=== PATIENT | female | born 1995 | race Caucasian/White ===

== ENCOUNTER → 2020-05-27 | Outpatient (CLI) | payer MEDICAID ==
--- NOTE | 2020-05-27 12:35 | US ---
EXAMINATION TYPE: Ultrasound OB <= 14 weeks transvaginal DATE OF EXAM: 05/27/2020 11:12 AM COMPARISON: NONE CLINICAL HISTORY: 25-year-old female O26.859 Spotting complicating , unspecified. Spotting a nd cramping x 5 days; LLQ Pain x 1 day EXAM PERFORMED: Transvaginal (TV) and Transabdominal (TA) FINDINGS: EXAM MEASUREMENTS: GESTATIONAL AGE / DATING Physician Established: Not yet established Dates by LMP: 04/05/20 (7 weeks/3 days) EDC: 01/10/21 Dates by First Scan: No previous this is first scan Dates by Current Scan for: (6 weeks/1 days +/- 3 days) EDC: 01/19/21 MATERNAL ANATOMY Uterus: 8.8 x 5.9 x 5.9 cm Right Ovary: 2.3 x 1.5 x 1.4 cm Left Ovary: 3.4 x 2.3 x 2.2 cm Post CDS / Adnexa: No Presence of free fluid: No Presence of corpus luteal cyst: Lt 2.4 x 1.8 x 1.7 cm Presence of subchorionic bleed: 2.2 x 0.5 x 0.7 cm GESTATION / SURVEY CRL: 0.28 (5 weeks/6 days) MSD: 1.95 cm (6 weeks/3 days) Yolk Sac (normal less than 6mm): 0.2 Heart Rate: 103 bpm Rhythm: Normal IUP: Viable IUP Date of LMP: 04/05/20 Beta HcG (if available): Not available at this time IMPRESSION: 1. Single live intrauterine with estimated gestational age of 7 weeks 3 days by LMP. Curren t ultrasound biometry is smaller and discordant at 6 weeks 1 day. Correlate for accuracy of recall of LMP. 2. Measured heart rate of 103 BPM is acceptable at 6 weeks 1 day but would be bradycardic at 7 weeks 3 days. 3. In addition, there is a small left-sided perigestational bleed measuring 2.2 x 0.7 cm. Short inter kevin follow-up recommended given these findings. 4. Also, complete survey recommended at 18-20 weeks.
== END | disposition home or self-care (01) ==
LOC: RADUSWWP 10:21
PROVIDERS: ATTEND Obstetrics & Gynecology
DX: O26.859 Spotting complicating pregnancy, unspecified trimester (principal); Z3A.01 Less than 8 weeks gestation of pregnancy
CPT/HCPCS: 76801; 76817

== ENCOUNTER → 2020-06-16 | Outpatient (CLI) | payer MEDICAID ==
--- NOTE | 2020-06-16 14:57 | US ---
EXAMINATION TYPE: Transabdominal DATE OF EXAM: 06/16/2020 2:40 PM COMPARISON: NONE CLINICAL HISTORY: O76 Abnormal Heart Tones. follow up EXAM PERFORMED: Transabdominal (TA) EXAM MEASUREMENTS: GESTATIONAL AGE / DATING Physician Established: Not yet established Dates by LMP: (10 weeks/2 days) EDC: 01/10/21 Dates by First Scan: (9 weeks/0 days) EDC: 01/19/21 Dates by Current Scan for: (9 weeks/2 days) EDC: 01/17/21 MATERNAL ANATOMY Uterus: 13.9 x 5.2 x 8.5cm Right Ovary: 2.0 x 1.4 x 2.8cm Left Ovary: 3.1 x 2.1 x 2.6cm Post CDS / Adnexa: appears wnl Presence of free fluid: no Presence of corpus luteal cyst: yes, left ovary = 2.1 x 1.7 x 1.8cm GESTATION / SURVEY CRL: 2.5cm (9 weeks/2 days) Yolk Sac (normal less than 6mm): 0.4cm Heart Rate: 167 bpm Rhythm: Normal IUP: Viable IUP Date of LMP: 04/05/20 Beta HcG (if available): Not available at this time IMPRESSION: Viable 9 weeks 2 days with a heart rate 167 bpm.
== END | disposition home or self-care (01) ==
LOC: RADUSWWP 14:14
PROVIDERS: ATTEND Obstetrics & Gynecology
DX: O76 Abnormality in fetal heart rate and rhythm complicating labor and delivery (principal); Z3A.09 9 weeks gestation of pregnancy
CPT/HCPCS: 76801

== ENCOUNTER → 2020-06-18 | Outpatient (CLI) | payer MEDICAID ==
[2020-06-18 12:07] LABS: HCT 42.5 % (34.0-46.0); HGB 13.5 gm/dL (11.4-16.0); MCH 26.4 pg (25.0-35.0); MCHC 31.8 g/dL (31.0-37.0); Mean Platelet Volume 6.4; Platelet Count 257 k/uL (150-450); RBC 5.12 m/uL (3.80-5.40); RDW 13.8 % (11.5-15.5); WBC 10.1 k/uL (3.8-10.6)
[2020-06-18 16:45] LABS: African American GFR (CKD) 144.8 (60.0-200.0); Non-African American GFR(CKD) 124.9 (60.0-200.0)
[2020-06-18 16:53] LABS: T4, Free (Free Thyroxine) 1.1 ng/dL (0.80-1.80)
[2020-06-18 17:20] LABS: T3, Uptake 17 % (23-37)
[2020-06-18 19:23] LABS: HIV 2 AB Non-Reactive (Non-Reactive); HIV AB P24 Non-Reactive (Non-Reactive); HIV P24 AG Non-Reactive (Non-Reactive)
[2020-06-18 20:44] LABS: Hepatitis B Surface Antigen Non-Reactive (Non-Reactive)
[2020-06-19 04:15] LABS: Toxoplasma Antibody (IgG) <3.0 IU/mL (<7.2); Toxoplasma Antibody (IgM) <3.0 AU/mL (<8.0)
== END | disposition home or self-care (01) ==
LOC: LABWHC1 09:28
PROVIDERS: ATTEND Obstetrics & Gynecology
DX: O26.811 Pregnancy related exhaustion and fatigue, first trimester (principal); Z3A.00 Weeks of gestation of pregnancy not specified
CPT/HCPCS: 36415; 82565; 82950; 84439; 84443; 84479; 85027; 86762; 86777; 86778; 86780; 86850; 86900; 86901; 87340; 87390

== ENCOUNTER → 2020-07-10 | Outpatient (CLI) | payer MEDICAID | END | disposition home or self-care (01) | LOC: LABWHC1 14:16 | PROVIDERS: ATTEND Pediatrics Pediatric Infectious Diseases | DX: Z03.818 Encounter for observation for suspected exposure to other biological agents ruled out (principal) ==

== ENCOUNTER 2020-07-11 23:47 | Emergency (ER) | payer MEDICAID ==
[2020-07-11 23:51] VITALS: BP 146/90; TEMP 98.2
--- NOTE | 2020-07-12 00:15 | ED ---
SOB HPI - General Chief Complaint: Shortness of Breath Stated Complaint: SOB Time Seen by Provider: 07/11/20 23:56 Source: patient Mode of arrival: ambulatory Limitations: no limitations - History of Present Illness Initial Comments: This patient is 25-year-old woman with history of asthma who presents with the chief complaint of shortness of breath, coughing, wheezing. Patient states that things been going on for approximately 3-4 days. She states that her sister was having similar symptoms and they were concerned they may have rotavirus. The pa sánchez saw her primary physician and was started on Medrol Dosepak. She is taking 2 pills today. In addition, patient states she is 13 weeks . Patient has not noted fever or chills. No chest pain. No sputum. MD Complaint: shortness of breath, cough -: days(s) Severity scale (1-10): 0 Consistency: constant Improves With: bronchodilators Worsens With: nothing Known History Of: asthma Associated Symptoms: cough Treatments Prior to Arrival: bronchodilator, other (Dexamethasone) - Related Data Home Oxygen Therapy: No Allergies Allergy/AdvReac Type Severity Reaction Status Date / Time hydroxyzine [From Atarax] Allergy Rash/Hives Verified 07/11/20 23:51 Review of Systems ROS Statement: Those systems with pertinent positive or pertinent negative responses have been documented in the HPI. ROS Other: All systems not noted in ROS Statement are negative. Constitutional: Denies: fever, chills ENT: Reports: congestion Respiratory: Reports: cough, dyspnea, wheezes. Denies: hemoptysis Cardiovascular: Denies: chest pain, palpitations, edema, syncope Gastrointestinal: Denies: abdominal pain, nausea, vomiting, diarrhea Genitourinary: Denies: dysuria, hematuria Musculoskeletal: Denies: back pain Skin: Denies: rash Neurological: Denies: headache, weakness, numbness Past Medical History Past Medical History: Asthma History of Any Multi-Drug Resistant Organisms: None Reported Past Surgical History: Section Past Psychological History: Anxiety, Depression Smoking Status: Former smoker Past Alcohol Use History: None Reported Past Drug Use History: None Reported General Exam Limitations: no limitations General appearance: alert, in no apparent distress Head exam: Present: atraumatic, normocephalic Eye exam: Present: normal appearance. Absent: scleral icterus, conjunctival injection ENT exam: Present: normal oropharynx Neck exam: Present: normal inspection Respiratory exam: Present: wheezes. Absent: respiratory distress, rales, rhonchi, stridor, accessory muscle use, decreased breath sounds, prolonged expiratory Cardiovascular Exam: Present: regular rate, tachycardia, normal heart sounds. Absent: systolic murmur, diastolic murmur, rubs, gallop GI/Abdominal exam: Present: soft. Absent: distended, tenderness, guarding, rebound, rigid, mass Extremities exam: Present: normal inspection, normal capillary refill. Absent: pedal edema, calf tenderness Back exam: Present: normal inspection. Absent: CVA tenderness (R), CVA tenderness (L) Neurological exam: Present: alert Skin exam: Present: warm, dry, intact, normal color. Absent: rash Course Vital Signs 07/11/20 07/12/20 07/12/20 23:47 00:44 00:54 Temperature 98.2 F Pulse Rate 116 H 90 112 H Respiratory 20 Rate Blood Pressure 146/90 O2 Sat by Pulse 100 Oximetry Medical Decision Making - Medical Decision Making Patient is 25-year-old woman with history of asthma. She had marked improvement following nebulized treatment, and therefore additional steroids are held. I did discuss risks and benefits of this and goal was to minimize steroid exposure while . She is feeling markedly better and wants home. She does have follow-up with Dr. Domingo scheduled. - EKG Data -: EKG Interpreted by Me EKG shows normal: sinus rhythm, axis (Normal), intervals (Normal), ST-T waves (Normal) Rate: tachycardia (Rate 111 bpm) Disposition Clinical Impression: Asthma exacerbation Disposition: HOME SELF-CARE Condition: Good Instructions (If sedation given, give patient instructions): Asthma (ED) Is patient prescribed a controlled substance at d/c from ED?: No Referrals: Glen Domingo DO [Primary Care Provider] - 1-2 days
[2020-07-12] MEDS ORDERED: predniSONE 50 MG TAB PO STA (00:16)
[2020-07-12] MEDS ORDERED: IPRATROPIUM-ALBUTEROL 3 ML NEB INHALATION STA (00:16)
[2020-07-12 01:34] VITALS: PULSE 101; RESP 18
== END 2020-07-12 01:34 | disposition home or self-care (01) ==
LOC: EC 23:47
DX: O99.511 Diseases of the respiratory system complicating pregnancy, first trimester (principal); J45.901 Unspecified asthma with (acute) exacerbation; Z88.8 Allergy status to other drugs, medicaments and biological substances; Z87.891 Personal history of nicotine dependence; Z3A.13 13 weeks gestation of pregnancy
CPT/HCPCS: 93005; 94640; 99285

== ENCOUNTER → 2020-08-25 | Outpatient (CLI) | payer MEDICAID ==
--- NOTE | 2020-08-25 16:18 | US ---
EXAMINATION TYPE: US OB anatomy transabd DATE OF EXAM: 08/25/2020 COMPARISON: US HISTORY: O36.62X0 Maternal care for excessive growth, TECHNIQUE: Transabdominal (TA) EXAM MEASUREMENTS: GESTATIONAL AGE / DATING Physician Established: ( weeks/19 days) 0 EDC: 01/19/2021 Dates by LMP: ( weeks/20 days) 2 EDC: 01/10/2021 Dates by First Scan: ( weeks/19 days) 0 EDC: Dates by Current Scan for: (19 weeks/3 days) EDC: 01/16/2021 SURVEY IUP: Single PLACENTA: Anterior PREVIA: No previa TORIBIO: 11.3 cm Normal CERVICAL LENGTH (transabdominal: norm > 3.0cm): 3.9 cm BIOMETRY PRESENTATION: Breech BPD: 4.4 cm 19 weeks / 3 days HC: 17.0 cm 19 weeks / 5 days AC: 14.6 cm 20 weeks / 0 days FL: 2.7 cm 18 weeks / 2 days ESTIMATED WEIGHT IN GRAMS: 278 grams ESTIMATED WEIGHT IN LBS/OZ: 0 lbs. 10 oz. WEIGHT PERCENTAGE BASED ON ESTABLISHED DATE: 56 % HC/AC: 1.2 Normal FL/AC: 18% Normal HEART RATE: 143 bpm RHYTHM: Normal ANATOMY SEEN (within normal limits): * Lateral Vent (< 1 cm) 0.6 cm * Cisterna Magna (< 1.1 cm) 0.3 cm * Nuchal Fold (< 0.6 cm) 0.3 cm * Cerebellum (varies with age) 1.9 cm Choroid Plexus (bilateral) Midline Falx Cavus Septi Pellucidi Four Chamber Heart Outflow tracts: LVOT/RVOT Stomach Situs Nose / Lips Diaphragm Kidneys (bilateral) Bladder Cord Insert Three Vessel Cord Longitudinal Spine Transverse Spine Arms (bilateral) Legs (bilateral) Growth according to dates. IMPRESSION: 1. Single intrauterine gestation estimated at 19 weeks 3 days gestation based on current ultrasound m easurements. Cardiac activity measures 143 bpm.
== END | disposition home or self-care (01) ==
LOC: RADUSWWP 10:57
PROVIDERS: ATTEND Obstetrics & Gynecology
DX: O36.62X0 Maternal care for excessive fetal growth, second trimester, not applicable or unspecified (principal); Z3A.19 19 weeks gestation of pregnancy
CPT/HCPCS: 76811

== ENCOUNTER → 2020-10-01 | Outpatient (CLI) | payer MEDICAID ==
[2020-10-01 09:59] LABS: Basophils % (A) 0 %; Eosinophils # (A) 0.1 k/uL (0-0.7); Eosinophils % (A) 1 %; HCT 36.9 % (34.0-46.0); HGB 11.8 gm/dL (11.4-16.0); Lymphocytes # (A) 1.4 k/uL (1.0-4.8); Lymphocytes % (A) 14 %; MCH 27.6 pg (25.0-35.0); MCHC 31.8 g/dL (31.0-37.0); MCV 86.7 fL (80.0-100.0); Mean Platelet Volume 6.6; Monocytes # (A) 0.4 k/uL (0-1.0); Monocytes % (A) 4 %; Neutrophils # (A) 7.4 k/uL (1.3-7.7); Neutrophils % (A) 80 %; Platelet Count 200 k/uL (150-450); RBC 4.26 m/uL (3.80-5.40); WBC 9.3 k/uL (3.8-10.6)
[2020-10-01 13:52] LABS: Glucose 3 Hour, Gest 145 mg/dL
== END | disposition home or self-care (01) ==
LOC: LABWHC1 09:16
PROVIDERS: ATTEND Obstetrics & Gynecology
DX: E03.9 Hypothyroidism, unspecified (principal); Z34.82 Encounter for supervision of other normal pregnancy, second trimester; Z86.32 Personal history of gestational diabetes
CPT/HCPCS: 36415; 82951; 82952; 84439; 84443; 84480; 85025

== ENCOUNTER → 2020-11-09 | Outpatient (CLI) | payer MEDICAID ==
--- NOTE | 2020-11-09 08:26 | US ---
EXAMINATION TYPE: US OB >= 14 wk fetus DATE OF EXAM: 11/09/2020 COMPARISON: 08/25/2020 CLINICAL HISTORY: O24.419 Gestational diabetes Gestational diabetes- insulin dependent TECHNIQUE: Transabdominal (TA) GESTATIONAL AGE / DATING Physician Established: (29 weeks/6 days) EDC: 01/19/2021 Dates by Current Scan: (30 weeks/6 days) EDC: 01/12/2021 Beta HCG (if available): Not available at this time SURVEY IUP: Single PLACENTA: Anterior, appears heterogenous PREVIA: No Previa TORIBIO: 16.0 cm Normal CERVICAL LENGTH (transabdominal: norm > 3.0cm): 3.7 cm BIOMETRY PRESENTATION: Transverse lie with head to maternal left BPD: 7.3 cm 29 weeks / 3 days HC: 28.6 cm 31 weeks / 3 days AC: 26.2 cm 30 weeks / 3 days FL: 6.2 cm 31 weeks / 3 days ESTIMATED WEIGHT IN GRAMS: 1667 grams ESTIMATED WEIGHT IN LBS/OZ: 3 lbs. 11 oz. WEIGHT PERCENTAGE BASED ON ESTABLISHED DATES: 75% HC/AC: 1.1 Normal FL/AC: 24% Normal HEART RATE: 130 bpm RHYTHM: Normal Single live IUP measuring 30 weeks 6 days. IMPRESSION: 1. Single intrauterine gestation estimated at 30 weeks 6 days gestation based on current ultrasound m easurements. Cardiac activity measures 130 bpm. 2. Estimated weight based on current measurements 1667 g, this is in the 75th percentile. 3. Current dating is advanced approximately one week advanced from the physician dating.
== END | disposition home or self-care (01) ==
LOC: RADUSWWP 07:03
PROVIDERS: ATTEND Obstetrics & Gynecology
DX: O24.419 Gestational diabetes mellitus in pregnancy, unspecified control (principal); Z3A.30 30 weeks gestation of pregnancy
CPT/HCPCS: 76805

== ENCOUNTER 2020-11-24 10:07 | Outpatient (CLI) | payer MEDICAID | END 2020-11-24 10:45 | disposition home or self-care (01) | LOC: FBPOP 10:07 | PROVIDERS: ATTEND Obstetrics & Gynecology | DX: O24.419 Gestational diabetes mellitus in pregnancy, unspecified control (principal); Z3A.32 32 weeks gestation of pregnancy | CPT/HCPCS: 59025 ==

== ENCOUNTER 2020-11-27 07:03 | Outpatient (CLI) | payer MEDICAID ==
[2020-11-27 07:55] VITALS: BP 123/67; PULSE 90; RESP 16; TEMP 98.3
--- NOTE | 2020-11-30 07:16 | P.MSEPDOC ---
Presenting Problems - Arrival Data Date of Arrival on Unit: 11/27/20 Time of Arrival on Unit: 07:12 Mode of Transport: Ambulatory - Complaint OB-Reason for Admission/Chief Complaint: NST Comment: pt arrived with a order for NST twice a week for pt being diabetic Medical History - Information : 2 Para: 1 Term: 1 : 0 Abortions: Spontaneous or Elective: 0 Number of Living Children: 0 - Gestational Age Gestational Age by ARIK (wks/days): 32 Weeks and 3 Days - History Complications: GDM, Prior Review of Systems - Review of Systems Constitutional: No problems Breast: No problems ENT: No problems Cardiovascular: No problems Respiratory: No problems Gastrointestinal: No problems Genitourinary: No problems Musculoskeletal: No problems Neurological: No problems Skin: No problems Vital Signs - Temperature Temperature: 98.3 F Temperature Source: Oral - Pulse Right Brachial Pulse Rate: 90 Pulse Assessment Method: Automatic Cuff - Respirations Respiratory Rate: 16 Oxygen Delivery Method: Room Air O2 Sat by Pulse Oximetry: 98 - Blood Pressure Right Arm Blood Pressure: 123/67 Blood Pressure Mean: 85 Blood Pressure Source: Automatic Cuff Medical Screen Scoring (Pre) - Cervical Exam Dilation: Exam Deferred Effacement: Exam Deferred Membranes: Intact - Uterine Contractions Frequency: N/A Duration: N/A Intensity: N/A - Maternal Vital Signs Maternal Temperature: N/A Maternal Blood Pressure: N/A Signs of Preeclampsia: N/A Maternal Respirations: N/A - Maternal Trauma Maternal Trauma: N/A - Assessment - Baby A Baseline FHR: 120 Heart Rate - NICHD Category: Category I (Normal) = 0 NST: Reactive Position: N/A - Total Score - Baby A Total Score - Baby A: 0 - Total Score - Baby B Total Score - Baby B: 0 - Total Score - Baby C Total Score - Baby C: 0 - Level of Risk - Baby A Level of Risk - Baby A: Low (0-5) - Level of Risk - Baby B Level of Risk - Baby B: Low (0-5) - Level of Risk - Baby C Level of Risk - Baby C: Low (0-5) Physician Notification (Pre) - Physician Notified Physician Notified Date: 11/27/20 Physician Notified Time: 07:00 New Order Received: No - Notification Comment Comment: reactive NST. Dr Malcolm in department Disposition - Disposition OB Disposition: Discharge to home Discharge Date: 11/27/20 Discharge Time: 07:35 I agree with the RN Medical Screening Exam: Yes Case reviewed; plan agreed upon as documented in EMR&OBIX.: Yes Diagnosis: GESTATIONAL DIABETES MELLITUS IN , DIET CONTROLLED
== END 2020-11-27 07:35 | disposition home or self-care (01) ==
LOC: FBPOP 07:03
PROVIDERS: ATTEND Obstetrics & Gynecology
DX: O24.410 Gestational diabetes mellitus in pregnancy, diet controlled (principal); Z3A.32 32 weeks gestation of pregnancy
CPT/HCPCS: 59025

== ENCOUNTER 2020-12-03 20:29 | Outpatient (CLI) | payer MEDICAID ==
--- NOTE | 2020-12-08 10:52 | P.MSEPDOC ---
Presenting Problems - Arrival Data Date of Arrival on Unit: 12/03/20 Time of Arrival on Unit: 20:29 Mode of Transport: Ambulatory - Complaint OB-Reason for Admission/Chief Complaint: NST Comment: pt has written order for twice a week nst Medical History - Gestational Age Gestational Age by ARIK (wks/days): 33 Weeks and 2 Days Review of Systems - Review of Systems Constitutional: No problems Breast: No problems ENT: No problems Cardiovascular: No problems Respiratory: No problems Gastrointestinal: No problems Genitourinary: No problems Musculoskeletal: No problems Neurological: No problems Skin: No problems Physician Notification (Pre) - Physician Notified Physician Notified Date: 12/03/20 Physician Notified Time: 21:07 - Notification Comment Comment: nst reactive, discharge pt home Disposition - Disposition OB Disposition: Triage, Discharge to home, Written follow up instructions reviewed Discharge Date: 12/03/20 Discharge Time: 20:11 I agree with the RN Medical Screening Exam: Yes Case reviewed; plan agreed upon as documented in EMR&OBIX.: Yes Diagnosis: RELATED CONDITIONS, UNSPECIFIED, THIRD TRIMESTER
== END 2020-12-03 21:11 | disposition home or self-care (01) ==
LOC: FBPOP 20:29
PROVIDERS: ATTEND Obstetrics & Gynecology
DX: O24.419 Gestational diabetes mellitus in pregnancy, unspecified control (principal); Z3A.00 Weeks of gestation of pregnancy not specified
CPT/HCPCS: 59025

== ENCOUNTER 2020-12-07 20:26 | Outpatient (CLI) | payer MEDICAID ==
[2020-12-07 22:39] VITALS: BP 130/70; PULSE 103; RESP 16; TEMP 96.1
--- NOTE | 2020-12-08 06:22 | P.MSEPDOC ---
Presenting Problems - Arrival Data Date of Arrival on Unit: 12/07/20 Time of Arrival on Unit: 20:26 Mode of Transport: Ambulatory - Complaint OB-Reason for Admission/Chief Complaint: Possible Onset of Labor Comment: Contractions every 2-5 minutes since 1730. Medical History - Information : 2 Para: 1 Term: 1 : 0 Abortions: Spontaneous or Elective: 0 Number of Living Children: 1 - Gestational Age Gestational Age by ARIK (wks/days): 33 Weeks and 6 Days - History Complications: GDM Review of Systems - Review of Systems Constitutional: No problems Breast: No problems ENT: No problems Cardiovascular: No problems Respiratory: No problems Gastrointestinal: No problems Genitourinary: No problems Musculoskeletal: No problems Neurological: No problems Skin: No problems Vital Signs - Temperature Temperature: 96.1 F Temperature Source: Temporal Artery Scan - Pulse Right Brachial Pulse Rate: 103 Pulse Assessment Method: Automatic Cuff - Respirations Respiratory Rate: 16 Oxygen Delivery Method: Room Air O2 Sat by Pulse Oximetry: 96 - Blood Pressure Right Arm Blood Pressure: 130/70 Blood Pressure Mean: 90 Blood Pressure Source: Automatic Cuff Medical Screen Scoring (Pre) - Cervical Exam Dilation: 0 cm = 0 Effacement: Exam Deferred Membranes: Intact - Uterine Contractions Frequency: > 5 minutes apart = 1 Duration: N/A Intensity: N/A - Maternal Vital Signs Maternal Temperature: N/A Signs of Preeclampsia: N/A Maternal Respirations: N/A - Maternal Trauma Maternal Trauma: N/A - Assessment - Baby A Baseline FHR: 125 Heart Rate - NICHD Category: Category I (Normal) = 0 NST: Reactive - Total Score - Baby A Total Score - Baby A: 1 - Total Score - Baby B Total Score - Baby B: 1 - Total Score - Baby C Total Score - Baby C: 1 - Level of Risk - Baby A Level of Risk - Baby A: Low (0-5) - Level of Risk - Baby B Level of Risk - Baby B: Low (0-5) - Level of Risk - Baby C Level of Risk - Baby C: Low (0-5) Physician Notification (Pre) - Physician Notified Physician Notified Date: 12/07/20 Physician Notified Time: 22:14 New Order Received: Yes - Notification Comment Comment: Reported irregular contractions, cervix closed/thick/high, FFN negative orders to d/c pt home at this time. Disposition - Disposition OB Disposition: Discharge to home, Written follow up instructions reviewed Discharge Date: 12/07/20 Discharge Time: 22:17 I agree with the RN Medical Screening Exam: Yes Case reviewed; plan agreed upon as documented in EMR&OBIX.: Yes Diagnosis: FALSE LABOR BEFORE 37 COMPLETED WEEKS OF GEST, THIRD TRI (Patient presented to labor and delivery with complaints of contractions. Patient was here earlier in the day for a scheduled nonstress tests for gestational diabetes and was found to have some contractions. Patient went home and apparently became more regular and now she returns. fibronectin was negative. Cervix is closed. Patient is having irregular contractions. My impression this patient is having some contractions that are not regular but not labor. She was instructed to return to labor and delivery if she had increased contractions, bleeding, or other concerns. Otherwise will follow up in the office with Dr. Nunez as scheduled.)
== END 2020-12-07 22:17 | disposition home or self-care (01) ==
LOC: FBPOP 20:26
PROVIDERS: ATTEND Obstetrics & Gynecology
DX: O47.03 False labor before 37 completed weeks of gestation, third trimester (principal); Z3A.33 33 weeks gestation of pregnancy
CPT/HCPCS: 59025; 82731; 99213

== ENCOUNTER → 2020-12-07 | Outpatient (CLI) | payer MEDICAID ==
--- NOTE | 2020-12-07 10:41 | US ---
EXAMINATION TYPE: US OB >= 14 wk fetus DATE OF EXAM: 12/07/2020 COMPARISON: None CLINICAL HISTORY: O24.419 Gestational diabetes mellitus in TECHNIQUE: GESTATIONAL AGE / DATING Physician Established:(33 weeks/6 days) EDC: 01-19-21 Dates by Current Scan: (35 weeks/0 days) EDC: 01-11-21 SURVEY IUP: Single PLACENTA: Anterior PREVIA: No Previa TORIBIO: 14.5 cm CERVICAL LENGTH (transabdominal: norm > 3.0cm): 3.6 cm BIOMETRY PRESENTATION: Vertex BPD: 8.2 cm 33 weeks / 0 days HC: 31.4 cm 35 weeks / 2 days AC: 30.5 cm 34 weeks / 4 days FL: 7.2 cm 37 weeks / 0 days ESTIMATED WEIGHT IN GRAMS: 2579 grams ESTIMATED WEIGHT IN LBS/OZ: 5 lbs. 11 oz. WEIGHT PERCENTAGE BASED ON ESTABLISHED DATES: 78% HC/AC:1.0 FL/AC: 24 HEART RATE: 130 bpm IMPRESSION: Single viable intrauterine as discussed above
== END | disposition home or self-care (01) ==
LOC: RADUSWWP 09:43
PROVIDERS: ATTEND Obstetrics & Gynecology
DX: O24.419 Gestational diabetes mellitus in pregnancy, unspecified control (principal); O26.843 Uterine size-date discrepancy, third trimester; Z3A.35 35 weeks gestation of pregnancy
CPT/HCPCS: 76805

== ENCOUNTER 2020-12-22 14:59 | Outpatient (CLI) | payer MEDICAID ==
[2020-12-22 15:43] LABS: Glucose,Whole Blood 82 mg/dL (75-99)
[2020-12-22 17:06] VITALS: BP 121/69; PULSE 95; RESP 18; TEMP 96.9
--- NOTE | 2021-01-06 02:31 | P.MSEPDOC ---
Presenting Problems - Arrival Data Date of Arrival on Unit: 12/22/20 Time of Arrival on Unit: 15:00 Mode of Transport: Ambulatory - Complaint OB-Reason for Admission/Chief Complaint: Possible Onset of Labor Medical History - Information : 2 Para: 1 Term: 1 : 0 Abortions: Spontaneous or Elective: 0 Number of Living Children: 1 - Gestational Age Gestational Age by ARIK (wks/days): 36 Weeks and 0 Days - History Complications: GDM, Prior Review of Systems - Review of Systems Constitutional: No problems Breast: No problems ENT: No problems Cardiovascular: No problems Respiratory: No problems Gastrointestinal: No problems Genitourinary: No problems Musculoskeletal: No problems Neurological: No problems Skin: No problems Vital Signs - Temperature Temperature: 96.9 F Temperature Source: Temporal Artery Scan - Pulse Pulse Oximetery Pulse Rate: 95 Pulse Assessment Method: Automatic Cuff - Respirations Respiratory Rate: 18 O2 Sat by Pulse Oximetry: 99 - Blood Pressure Right Arm Sitting Blood Pressure: 121/69 Blood Pressure Mean: 86 Blood Pressure Source: Automatic Cuff Medical Screen Scoring (Pre) - Cervical Exam Dilation: 1-3 cm = 1 Effacement: More than 50% = 2 Membranes: Intact - Uterine Contractions Frequency: > 5 minutes apart = 1 Duration: N/A Intensity: N/A - Maternal Vital Signs Maternal Temperature: N/A Maternal Blood Pressure: N/A Signs of Preeclampsia: N/A Maternal Respirations: N/A - Maternal Trauma Maternal Trauma: N/A - Assessment - Baby A Baseline FHR: 120 Heart Rate - NICHD Category: Category I (Normal) = 0 NST: Reactive Position: N/A Station: N/A - Total Score - Baby A Total Score - Baby A: 4 - Total Score - Baby B Total Score - Baby B: 4 - Total Score - Baby C Total Score - Baby C: 4 - Level of Risk - Baby A Level of Risk - Baby A: Low (0-5) - Level of Risk - Baby B Level of Risk - Baby B: Low (0-5) - Level of Risk - Baby C Level of Risk - Baby C: Low (0-5) Physician Notification (Pre) - Physician Notified Physician Notified Date: 12/22/20 Physician Notified Time: 16:20 New Order Received: Yes Disposition - Disposition OB Disposition: Discharge to home, Written follow up instructions reviewed Discharge Date: 12/22/20 Discharge Time: 16:25 I agree with the RN Medical Screening Exam: Yes Case reviewed; plan agreed upon as documented in EMR&OBIX.: Yes Diagnosis: FALSE LABOR BEFORE 37 COMPLETED WEEKS OF GEST, THIRD TRI
== END 2020-12-22 16:25 | disposition home or self-care (01) ==
LOC: FBPOP 14:59
PROVIDERS: ATTEND Obstetrics & Gynecology
DX: O47.03 False labor before 37 completed weeks of gestation, third trimester (principal); Z3A.36 36 weeks gestation of pregnancy
CPT/HCPCS: 59025; 99213

== ENCOUNTER → 2020-12-30 | Outpatient (CLI) | payer MEDICAID ==
--- NOTE | 2020-12-30 15:04 | US ---
EXAMINATION TYPE: US OB >= 14 wk fetus DATE OF EXAM: 12/30/2020 COMPARISON: None CLINICAL HISTORY: O36.63x0 LArge for dates Gest diabetes, LGA TECHNIQUE: OBTA GESTATIONAL AGE / DATING Physician Established: (37 weeks/1 days) EDC: 01/19/2021 Dates by LMP: LMP unknown Dates by First Scan: (37 weeks/1 days) EDC: 01/19/2021 Dates by Current Scan: (36 weeks/3 days) EDC: 01/24/2021 SURVEY IUP: Single PLACENTA: Anterior PREVIA: No Previa TORIBIO: 14.4 cm Normal CERVICAL LENGTH (transabdominal: norm > 3.0cm): unable to see due to shadowing from head and bl adder not fully distended BIOMETRY PRESENTATION: Vertex LIE: Longitudinal BPD: 8.5 cm 34 weeks / 3 days HC: 32.0 cm 36 weeks / 1 days AC: 34.8 cm 38 weeks / 5 days FL: 7.3 cm 37 weeks / 3 days ESTIMATED WEIGHT IN GRAMS: 3247 grams ESTIMATED WEIGHT IN LBS/OZ: 7 lbs. 3 oz. WEIGHT PERCENTAGE BASED ON ESTABLISHED DATES: 68.6% HC/AC: 0.9 Normal FL/AC: 21.0 Normal HEART RATE: 124 bpm RHYTHM: Normal IMPRESSION: 1. Single intrauterine gestation estimated at 36 weeks 3 days gestation based on the current ultrasou nd measurements. Cardiac activity measures 124 bpm. 2. The femur length to head circumference ratio is slightly elevated at 22.83. Normal 20.40 - 22.31.
== END | disposition home or self-care (01) ==
LOC: RADUSWWP 14:18
PROVIDERS: ATTEND Obstetrics & Gynecology
DX: O99.891 Other specified diseases and conditions complicating pregnancy (principal); O24.419 Gestational diabetes mellitus in pregnancy, unspecified control; Z3A.36 36 weeks gestation of pregnancy
CPT/HCPCS: 76805

== ENCOUNTER 2021-01-11 06:00 | Inpatient (IN) | payer MEDICAID ==
[2021-01-11] MEDS ORDERED: TERBUTALINE 1 MG/ML VIAL SQ PRN (06:33)
[2021-01-11] MEDS ORDERED: METHYLERGONOVINE 0.2 MG/ML 1 ML AMP IM PRN (06:33)
[2021-01-11] MEDS ORDERED: CARBOPROST TROMETHAMINE 250 MCG/ML 1 ML AMP IM PRN (06:33)
[2021-01-11] MEDS ORDERED: LIDOCAINE 0.5% (PF) 5 MG/ML (50 ML SDV) SQ PRN (06:33)
[2021-01-11] MEDS ORDERED: OXYTOCIN 10 UNIT/ML 1 ML VIAL IM PRN (06:33)
[2021-01-11 06:36] LABS: Glucose,Whole Blood 90 mg/dL (75-99)
[2021-01-11] MEDS: LACTATED RINGERS 1,000 ML IV SCH ×2 (06:41→09:31)
[2021-01-11] MEDS ORDERED: OXYTOCIN 30 UNITS/500 ML NS 30 UNIT in SALINE 1 500ML.BAG IV SCH ×2 (06:45→12:30)
[2021-01-11 06:56] LABS: Basophils % (A) 0 %; Eosinophils # (A) 0.1 k/uL (0-0.7); Eosinophils % (A) 1 %; HCT 38.7 % (34.0-46.0); HGB 13.7 gm/dL (11.4-16.0); Lymphocytes # (A) 1.7 k/uL (1.0-4.8); Lymphocytes % (A) 17 %; MCHC 35.3 g/dL (31.0-37.0); MCV 82.2 fL (80.0-100.0); Mean Platelet Volume 6.6; Monocytes # (A) 0.6 k/uL (0-1.0); Monocytes % (A) 5 %; Neutrophils # (A) 7.7 k/uL (1.3-7.7); Neutrophils % (A) 75 %; Platelet Count 218 k/uL (150-450); RBC 4.71 m/uL (3.80-5.40); RDW 14.3 % (11.5-15.5); WBC 10.2 k/uL (3.8-10.6)
[2021-01-11 07:59] LABS: Glucose,Whole Blood 84 mg/dL (75-99)
[2021-01-11] MEDS ORDERED: ROPIVACAINE 100 MG, fentaNYL (PF). 200 MCG in SODIUM CHLORIDE 0.9% 76 ML EPIDURAL ONE (09:57)
[2021-01-11 10:03] LABS: Glucose,Whole Blood 83 mg/dL (75-99)
[2021-01-11] MEDS ORDERED: SIMETHICONE 80 MG CHEWABLE PO PRN (12:25)
[2021-01-11] MEDS ORDERED: HYDROCORTISONE 2.5% RECTAL CREAM 30 GM TUBE RECTAL PRN (12:25)
[2021-01-11] MEDS ORDERED: BENZOCAINE/MENTHOL SPRAY 1 GM/SPRAY AEROSOL TOPICAL PRN (12:25)
[2021-01-11] MEDS ORDERED: ACETAMINOPHEN TAB 325 MG TAB PO PRN (12:25)
[2021-01-11] MEDS ORDERED: LANOLIN CREAM 5 GM TUBE TOPICAL PRN (12:25)
[2021-01-11] MEDS ORDERED: diphenhydrAMINE 50 MG CAP PO PRN (12:25)
[2021-01-11] MEDS ORDERED: ZOLPIDEM 5 MG TAB PO PRN (12:25)
[2021-01-11] MEDS ORDERED: diphenhydrAMINE 50 MG/ML 1 ML VIAL IVP PRN ×2 (12:25)
[2021-01-11] MEDS ORDERED: diphenhydrAMINE 25 MG CAP PO PRN (12:25)
--- NOTE | 2021-01-11 12:55 | P.HPOB ---
History of Present Illness H&P Date: 01/11/21 Chief Complaint: INduction of labor 25 year old presents at 39 weeks for induction of labor. Her cervix is 2/80/-2 and she is radha irregularly. heart tones 135 with moderate variability and reactive. Review of Systems All systems: negative Constitutional: Denies chills, Denies fever Eyes: denies blurred vision, denies pain Ears, nose, mouth and throat: Denies headache, Denies sore throat Cardiovascular: Denies chest pain, Denies shortness of breath Respiratory: Denies cough Gastrointestinal: Denies abdominal pain, Denies diarrhea, Denies nausea, Denies vomiting Genitourinary: Denies dysuria, Denies hematuria Musculoskeletal: Denies myalgias Integumentary: Denies pruritus, Denies rash Neurological: Denies numbness, Denies weakness Psychiatric: Denies anxiety, Denies depression Endocrine: Denies fatigue, Denies weight change Past Medical History Past Medical History: Asthma, Thyroid Disorder Additional Past Medical History / Comment(s): gestational diabetes History of Any Multi-Drug Resistant Organisms: None Reported Past Surgical History: Section Past Anesthesia/Blood Transfusion Reactions: No Reported Reaction Past Psychological History: Anxiety, Depression Smoking Status: Former smoker Past Alcohol Use History: None Reported Past Drug Use History: None Reported - Past Family History Father Family Medical History: Hyperlipidemia, Hypertension Mother Family Medical History: Cancer, Fibromyalgia Medications and Allergies Home Medications Medication Instructions Recorded Confirmed Type Citalopram Hydrobromide [CeleXA] 20 mg PO HS 10/15/20 01/11/21 History Levothyroxine Sodium 100 mcg PO HS 10/15/20 01/11/21 History Loratadine [Claritin] 10 mg PO HS 10/15/20 01/11/21 History Montelukast [Singulair] 10 mg PO HS 10/15/20 01/11/21 History Pnv No.95/Ferrous Fum/Folic AC 1 each PO HS 10/15/20 01/11/21 History [ Multivitamin Tablet] busPIRone HCL 5 mg PO BID 10/15/20 01/11/21 History Albuterol Inhaler [Ventolin Hfa 1 puff INHALATION DIRECTED PRN 11/24/20 01/11/21 History Inhaler] Albuterol Inhaler [Ventolin Hfa 2 puff INHALATION RT-QID PRN 11/24/20 01/11/21 History Inhaler] Budesonide [Pulmicort Flexhaler] 2 puff INHALATION DAILY 11/24/20 01/11/21 History Insulin Detemir (Levemir) [Levemir] 35 units SQ QAM 11/24/20 01/11/21 History Insulin NPH Hum/Reg Insulin Hm 22 units SQ DAILY 01/08/21 01/11/21 History [Novolin 70-30 Flexpen] valACYclovir [Valtrex] 500 mg PO BID 01/08/21 01/11/21 History Allergies Allergy/AdvReac Type Severity Reaction Status Date / Time adhesive tape Allergy Rash/Hives Verified 01/11/21 06:58 hydroxyzine [From Atarax] Allergy Rash/Hives Verified 01/11/21 06:27 Exam Osteopathic Statement: *. No significant issues noted on an osteopathic s tructural exam other than those noted in the History and Physical/Consult. Vital Signs Temp Pulse Resp BP Pulse Ox 01/11/21 12:15 98.0 F 88 16 127/66 01/11/21 06:45 96.3 F L 111 H 18 120/72 98 Intake and Output 01/10/21 01/11/21 01/11/21 22:59 06:59 14:59 Intake Total 172.333 Balance 172.333 Intake: Intake, IV Titration 172.333 Amount Oxytocin 30 Units/500 ml 172.333 Ns 30 unit In Saline 1 500ml.bag @ Per Protocol IV .Q0M [facility] Rx#:[id number] Other: Weight 97.976 kg Heart: Regular rate and rhythm Lungs: Clear to auscultation bilaterally Abdomen: Soft, nontender Extremities: Negative Homans sign Results Result Diagrams: 01/11/21 06:36 Assessment and Plan (1) Encounter for planned induction of labor Current Visit: Yes Status: Acute Code(s): Z34.90 - ENCNTR FOR SUPRVSN OF NORMAL , UNSP, UNSP TRIMESTER SNOMED Code(s): 698554801 (2) Gestational diabetes mellitus, class A2 Current Visit: Yes Status: Acute Code(s): O24.419 - GESTATIONAL DIABETES MELLITUS IN , UNSP CONTROL SNOMED Code(s): 80435236 Plan: 1. induction of labor with amniotomy and pitocin 2. monitor blood sugars during labor 3. anticipate normal vaginal delivery
[2021-01-11 13:52] LABS: Hemoglobin A1C 4.9 % (4.0-6.0)
[2021-01-11] MEDS: IBUPROFEN 600 MG TAB PO PRN (16:32)
[2021-01-11] MEDS: SENNOSIDES-DOCUSATE SODIUM 1 EACH TAB PO SCH (20:33)
[2021-01-12] MEDS: IBUPROFEN 600 MG TAB PO PRN ×2 (01:01→07:43)
[2021-01-12] MEDS: SENNOSIDES-DOCUSATE SODIUM 1 EACH TAB PO SCH (07:44)
[2021-01-12 08:38] LABS: Basophils % (A) 0 %; Eosinophils # (A) 0.1 k/uL (0-0.7); Eosinophils % (A) 1 %; HCT 34.4 % (34.0-46.0); HGB 11.8 gm/dL (11.4-16.0); Lymphocytes # (A) 1.9 k/uL (1.0-4.8); Lymphocytes % (A) 18 %; MCH 29.1 pg (25.0-35.0); MCHC 34.4 g/dL (31.0-37.0); MCV 84.6 fL (80.0-100.0); Mean Platelet Volume 6.9; Monocytes # (A) 0.6 k/uL (0-1.0); Monocytes % (A) 6 %; Neutrophils # (A) 7.8 k/uL (1.3-7.7); Neutrophils % (A) 73 %; Platelet Count 182 k/uL (150-450); RBC 4.07 m/uL (3.80-5.40); RDW 14.5 % (11.5-15.5); WBC 10.6 k/uL (3.8-10.6)
--- NOTE | 2021-01-12 08:54 | P.DS ---
Providers Date of admission: 01/11/21 06:06 Expected date of discharge: 01/12/21 Attending physician: Sammie Nunez Primary care physician: Stated None - Discharge Diagnosis(es) (1) Encounter for planned induction of labor Current Visit: Yes Status: Resolved (2) Gestational diabetes mellitus, class A2 Current Visit: Yes Status: Resolved (3) Vaginal after delivery Current Visit: Yes Status: Acute Hospital Course: Pt presented for induction of labor. She underwent a vaginal after . Her course was uncomplicated. She denies N/V, F/C, CP, SOb or calf pain. She will be discharged home PPD #1 in stable condition to follow up with me in 6 weeks. Plan - Discharge Summary New Discharge Prescriptions: New Ibuprofen [Motrin] 600 mg PO Q6H PRN #30 tab PRN Reason: Pain No Action busPIRone HCL 5 mg PO BID Citalopram Hydrobromide [CeleXA] 20 mg PO HS Montelukast [Singulair] 10 mg PO HS Loratadine [Claritin] 10 mg PO HS Pnv No.95/Ferrous Fum/Folic AC [ Multivitamin Tablet] 1 each PO HS Levothyroxine Sodium 100 mcg PO HS Albuterol Inhaler [Ventolin Hfa Inhaler] 2 puff INHALATION RT-QID PRN PRN Reason: Shortness Of Breath Insulin Detemir (Levemir) [Levemir] 35 units SQ QAM Albuterol Inhaler [Ventolin Hfa Inhaler] 1 puff INHALATION DIRECTED PRN PRN Reason: Shortness Of Breath Budesonide [Pulmicort Flexhaler] 2 puff INHALATION DAILY Insulin NPH Hum/Reg Insulin Hm [Novolin 70-30 Flexpen] 22 units SQ DAILY valACYclovir [Valtrex] 500 mg PO BID Discharge Medication List Citalopram Hydrobromide [CeleXA] 20 mg PO HS 10/15/20 [History] Levothyroxine Sodium 100 mcg PO HS 10/15/20 [History] Loratadine [Claritin] 10 mg PO HS 10/15/20 [History] Montelukast [Singulair] 10 mg PO HS 10/15/20 [History] Pnv No.95/Ferrous Fum/Folic AC [ Multivitamin Tablet] 1 each PO HS 10/15/20 [History] busPIRone HCL 5 mg PO BID 10/15/20 [History] Albuterol Inhaler [Ventolin Hfa Inhaler] 1 puff INHALATION DIRECTED PRN 11/24/20 [History] Albuterol Inhaler [Ventolin Hfa Inhaler] 2 puff INHALATION RT-QID PRN 11/24/20 [History] Budesonide [Pulmicort Flexhaler] 2 puff INHALATION DAILY 11/24/20 [History] Insulin Detemir (Levemir) [Levemir] 35 units SQ QAM 11/24/20 [History] Insulin NPH Hum/Reg Insulin Hm [Novolin 70-30 Flexpen] 22 units SQ DAILY 01/08/21 [History] valACYclovir [Valtrex] 500 mg PO BID 01/08/21 [History] Ibuprofen [Motrin] 600 mg PO Q6H PRN #30 tab 01/12/21 [Rx] Follow up Appointment(s)/Referral(s): Sammie Nunez DO [Doctor of Osteopathic Medicine] - 6 Weeks Discharge Disposition: HOME SELF-CARE
[2021-01-12 09:48] VITALS: BP 120/72; PULSE 95; RESP 14; TEMP 98.4
--- NOTE | 2021-01-12 12:03 | P.PROBDLV ---
Vaginal Delivery Note - . Vaginal Delivery Note: 25 year old presents at 39 weeks for induction of labor. Her cervix is 2/80/-2 and she is radha irregularly. heart tones 135 with moderate variability and reactive. Pitocin was started. Amniotomy performed at 718 and thin meconium fluid noted. Patient progressed with the morning and did get an epidural when she was about 3 cm dilated. Her cervix was completely dilated at 11:47 AM. She pushed, delivered a viable female over intact perineum under epidural anesthesia at 12:00. Head delivered OA, anterior shoulder delivered gentle guidance for by posterior shoulder and rest of body. Nose and mouth bulb suctioned, cord clamped and cut, infant placed mother's abdomen. Apgars 8, 9, weight 7 lbs. 5 oz. Placenta delivered spontaneously, intact with three-vessel cord at 12:02 PM. Vagina, cervix, and perineum were inspected. First-degree midline laceration was repaired with 3-0 Vicryl. Estimated blood loss 150 mL. Mother and baby in stable condition.
== END 2021-01-12 13:05 | disposition home or self-care (01) | DRG 807 ==
LOC: 4FBP 06:06
PROVIDERS: ADMIT Obstetrics & Gynecology; ATTEND Obstetrics & Gynecology
PROC: 3E0R3NZ Introduction of Analgesics, Hypnotics, Sedatives into Spinal Canal, Percutaneous Approach (ICD-10-PCS; principal; 2021-01-11)
PROC: 10E0XZZ Delivery of Products of Conception, External Approach (ICD-10-PCS; principal; 2021-01-11)
PROC: 10907ZC Drainage of Amniotic Fluid, Therapeutic from Products of Conception, Via Natural or Artificial Opening (ICD-10-PCS; principal; 2021-01-11)
PROC: 0HQ9XZZ Repair Perineum Skin, External Approach (ICD-10-PCS; principal; 2021-01-11)
PROC: 3E033VJ Introduction of Other Hormone into Peripheral Vein, Percutaneous Approach (ICD-10-PCS; principal; 2021-01-11)
PROC: 00HU33Z Insertion of Infusion Device into Spinal Canal, Percutaneous Approach (ICD-10-PCS; principal; 2021-01-11)
DX: O24.424 Gestational diabetes mellitus in childbirth, insulin controlled (principal); Z37.0 Single live birth; J45.909 Unspecified asthma, uncomplicated; F41.9 Anxiety disorder, unspecified; F32.9 Major depressive disorder, single episode, unspecified; O70.0 First degree perineal laceration during delivery; O77.0 Labor and delivery complicated by meconium in amniotic fluid; O99.344 Other mental disorders complicating childbirth; O99.52 Diseases of the respiratory system complicating childbirth; O34.211 Maternal care for low transverse scar from previous cesarean delivery; Z3A.39 39 weeks gestation of pregnancy; Z79.51 Long term (current) use of inhaled steroids; Z79.899 Other long term (current) drug therapy; Z82.49 Family history of ischemic heart disease and other diseases of the circulatory system; Z87.891 Personal history of nicotine dependence; Z80.9 Family history of malignant neoplasm, unspecified; Z79.4 Long term (current) use of insulin
CPT/HCPCS: 83036; 85025; 86850; 86900; 86901

== ENCOUNTER → 2021-05-10 | Outpatient (CLI) | payer MEDICAID ==
[2021-05-10 22:32] LABS: Hemoglobin A1C 5.1 % (4.0-6.0)
[2021-05-10 23:52] LABS: T4, Free (Free Thyroxine) 1.4 ng/dL (0.80-1.80)
== END | disposition home or self-care (01) ==
LOC: LABWHC1 11:32
PROVIDERS: ATTEND Internal Medicine
DX: O24.419 Gestational diabetes mellitus in pregnancy, unspecified control (principal); O99.280 Endocrine, nutritional and metabolic diseases complicating pregnancy, unspecified trimester; Z3A.00 Weeks of gestation of pregnancy not specified; E03.9 Hypothyroidism, unspecified
CPT/HCPCS: 36415; 83036; 84439; 84443

== ENCOUNTER → 2021-05-28 | Outpatient (CLI) | payer MEDICAID, OTHER | END | disposition home or self-care (01) | LOC: LABMAIN 16:00 | PROVIDERS: ATTEND Emergency Medicine | DX: Z20.822 Contact with and (suspected) exposure to COVID-19 (principal) | CPT/HCPCS: 87635 ==

== ENCOUNTER → 2021-05-29 | Outpatient (CLI) | payer MEDICAID, OTHER | END | disposition home or self-care (01) | LOC: LABWHC1 15:44 | PROVIDERS: ATTEND Emergency Medicine | DX: Z20.822 Contact with and (suspected) exposure to COVID-19 (principal) | CPT/HCPCS: 87635 ==

== ENCOUNTER → 2021-07-08 | Outpatient (CLI) | payer MEDICAID ==
--- NOTE | 2021-07-08 16:46 | US ---
EXAMINATION TYPE: US thyroid st tissue head/neck DATE OF EXAM: 07/08/2021 COMPARISON: NONE CLINICAL HISTORY: E03.9 Hypothyroidism. 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 GLAND SIZE: Right Lobe: 5.5 x 2.3 x 1.7 cm Overall Parenchyma: heterogenous Left Lobe: 5.2 x 2.0 x 1.6 cm Overall Parenchyma: heterogeneous Isthmus Thickness: 0.4 cm US: heterogeneous, enlarged and lobular appearance to borders bilaterally. RIGHT: # of nodules measured on right: 0 LEFT: # of nodules measured on left: 0 ISTHMUS: # of nodules measured in the isthmus: 0 Bilateral neck scanned: lymph node seen superior to right thyroid = 2.6 x 1.2 x 0.6cm; inferior to ri ght thyroid oval hypoechoic lymph node is seen = 1.5 x 1.2 x 0.6cm and also looked at with increased frequency transducer on image # [id number] with minimal echogenic hilum noted. Superior to left thyroid sm aller lymph node is imaged = 1.5 x 0.6 x 0.3cm. IMPRESSION: 1. Thyroid glandular enlargement and heterogeneity. 2. Lymph nodes as outlined above. 2017 ACR TI-RADS LEVEL: *Highest TI-RADS level nodule reported
[2021-07-08 17:58] LABS: T4, Free (Free Thyroxine) 1.03 ng/dL (0.78-2.19)
== END | disposition home or self-care (01) ==
LOC: RADUSWWP 15:54
PROVIDERS: ATTEND Internal Medicine
DX: E04.1 Nontoxic single thyroid nodule (principal); E03.9 Hypothyroidism, unspecified
CPT/HCPCS: 76536; 84439; 84443

== ENCOUNTER → 2021-08-10 | Outpatient (CLI) | payer MEDICAID ==
--- NOTE | 2021-08-10 09:12 | CT ---
EXAMINATION TYPE: CT soft tissue neck w con DATE OF EXAM: 08/10/2021 HISTORY: Cervical adenopathy COMPARISON: Thyroid ultrasound July 08, 2020 CT DLP: 711 mGycm. Automated Exposure Control for Dose Reduction was Utilized. TECHNIQUE: CT scan of the neck is performed with IV Contrast, patient injected with 100 mL of Isovue 300, axial images are obtained, coronal and sagittal reformatted images are reviewed. FINDINGS: Airway: Stable mildly enlarged thyroid. Adjacent subcentimeter lymph nodes redemonstrated. Parotid/submandibular glands: No gross abnormality seen. Carotid/Vascular Structures: Incidental dominant left vertebral artery filling the basilar artery. Osseous Structures: No significant abnormality. Other: Scattered subcentimeter lymph nodes throughout the neck bilaterally. No suspicious greater prasanth n 1 cm neck adenopathy IMPRESSION: No suspicious greater than 1 cm neck adenopathy with particular attention to thyroid lev el at area of recent suspicion on ultrasound.
== END | disposition home or self-care (01) ==
LOC: RADCTMAIN 08:23
PROVIDERS: ATTEND Otolaryngology
DX: R59.0 Localized enlarged lymph nodes (principal)
CPT/HCPCS: 70491; Q9967

== ENCOUNTER 2021-10-16 01:04 | Emergency (ER) | payer MEDICAID ==
[2021-10-16 01:11] VITALS: BP 142/86; PULSE 108; RESP 22; TEMP 99.2
[2021-10-16] MEDS ORDERED: SODIUM CHLORIDE 0.9% 50 ML IVPB ONE (03:00)
[2021-10-16] MEDS ORDERED: SOTROVIMAB (EUA) 500 MG in SODIUM CHLORIDE 0.9% 100 ML IVPB ONE (03:00)
--- NOTE | 2021-10-16 03:43 | ED ---
URI HPI - General Chief Complaint: Upper Respiratory Infection Stated Complaint: SOB, covid+ Time Seen by Provider: 10/16/21 01:16 Source: patient Mode of arrival: ambulatory Limitations: no limitations - History of Present Illness Initial Comments: This patient is a 26-year-old woman with history of asthma who states that she would like to have the antibiotic therapy for Covid infection. She states she has been having symptoms going back proximally 7 days. She had a positive test on October 12. She states she has been having fever and chills, mild headache, cough, congestion, and some body aches. Patient states that she also has had a little bit of a flareup of asthma like symptoms. She does have history of asthma. She was given a steroid taper but feels she is not having improvement yet. MD Complaint: fever, cough, nasal congestion Onset/Timin -: days(s) Consistency: constant Improves With: nothing Worsens With: nothing Context: sick contacts Associated Symptoms: fever, chills, myalgias, nasal congestion, cough - Related Data Home Medications Medication Instructions Recorded Confirmed Citalopram Hydrobromide [CeleXA] 20 mg PO HS 10/15/20 01/11/21 Levothyroxine Sodium 100 mcg PO HS 10/15/20 01/11/21 Loratadine [Claritin] 10 mg PO HS 10/15/20 01/11/21 Montelukast [Singulair] 10 mg PO HS 10/15/20 01/11/21 Pnv No.95/Ferrous Fum/Folic AC 1 each PO HS 10/15/20 01/11/21 [ Multivitamin Tablet] busPIRone HCL 5 mg PO BID 10/15/20 01/11/21 Albuterol Inhaler [Ventolin Hfa 1 puff INHALATION DIRECTED PRN 11/24/20 01/11/21 Inhaler] Albuterol Inhaler [Ventolin Hfa 2 puff INHALATION RT-QID PRN 11/24/20 01/11/21 Inhaler] Budesonide [Pulmicort Flexhaler] 2 puff INHALATION DAILY 11/24/20 01/11/21 Insulin Detemir (Levemir) [Levemir] 35 units SQ QAM 11/24/20 01/11/21 Insulin NPH Hum/Reg Insulin Hm 22 units SQ DAILY 01/08/21 01/11/21 [Novolin 70-30 Flexpen] valACYclovir [Valtrex] 500 mg PO BID 01/08/21 01/11/21 Previous Rx's Medication Instructions Recorded Ibuprofen [Motrin] 600 mg PO Q6H PRN #30 tab 01/12/21 Allergies Allergy/AdvReac Type Severity Reaction Status Date / Time adhesive tape Allergy Rash/Hives Verified 10/16/21 01:11 hydroxyzine [From Atarax] Allergy Rash/Hives Verified 10/16/21 01:11 Review of Systems ROS Statement: Those systems with pertinent positive or pertinent negative responses have been documented in the HPI. ROS Other: All systems not noted in ROS Statement are negative. Constitutional: Reports: fever, chills. Denies: weakness ENT: Reports: congestion Respiratory: Reports: cough, dyspnea, wheezes. Denies: hemoptysis, stridor Cardiovascular: Denies: chest pain, palpitations, edema Gastrointestinal: Denies: abdominal pain, vomiting, diarrhea Genitourinary: Denies: dysuria, hematuria Musculoskeletal: Denies: back pain Skin: Denies: rash Neurological: Denies: headache, weakness, numbness Past Medical History Past Medical History: Asthma, Thyroid Disorder Additional Past Medical History / Comment(s): gestational diabetes History of Any Multi-Drug Resistant Organisms: None Reported Past Surgical History: Section Past Anesthesia/Blood Transfusion Reactions: No Reported Reaction Past Psychological History: Anxiety, Depression Smoking Status: Former smoker Past Alcohol Use History: None Reported Past Drug Use History: None Reported - Past Family History Father Family Medical History: Hyperlipidemia, Hypertension Mother Family Medical History: Cancer, Fibromyalgia General Exam Limitations: no limitations General appearance: alert, in no apparent distress Head exam: Present: atraumatic, normocephalic Eye exam: Present: normal appearance. Absent: scleral icterus, conjunctival i njection ENT exam: Present: normal oropharynx Neck exam: Present: normal inspection Respiratory exam: Present: normal lung sounds bilaterally, wheezes. Absent: respiratory distress, rales, rhonchi, stridor, accessory muscle use Cardiovascular Exam: Present: regular rate, normal rhythm, normal heart sounds. Absent: systolic murmur, diastolic murmur, rubs, gallop GI/Abdominal exam: Present: soft. Absent: distended, tenderness, guarding, rebound, rigid, mass Extremities exam: Present: normal inspection, normal capillary refill. Absent: pedal edema, calf tenderness Back exam: Present: normal inspection. Absent: CVA tenderness (R), CVA tenderness (L) Neurological exam: Present: alert Skin exam: Present: warm, dry, intact, normal color. Absent: rash Course Vital Signs 10/16/21 01:06 Temperature 99.2 F Pulse Rate 108 H Respiratory 22 Rate Blood Pressure 142/86 O2 Sat by Pulse 98 Oximetry Disposition Clinical Impression: COVID-19, Asthma exacerbation Disposition: HOME SELF-CARE Condition: Good Instructions (If sedation given, give patient instructions): Coronavirus Disease 2019 (COVID-19) Is patient prescribed a controlled substance at d/c from ED?: No Referrals: Glen Domingo DO [Primary Care Provider] - 1-2 days
== END 2021-10-16 04:49 | disposition home or self-care (01) ==
LOC: EC 01:04
DX: U07.1 COVID-19 (principal); J45.901 Unspecified asthma with (acute) exacerbation; Z87.891 Personal history of nicotine dependence; Z91.048 Other nonmedicinal substance allergy status; Z88.6 Allergy status to analgesic agent
CPT/HCPCS: 99284; Q0247

== ENCOUNTER 2022-01-05 09:57 | Outpatient (CLI) | payer MEDICAID ==
[2022-01-05 10:45] LABS: T4, Free (Free Thyroxine) 1.04 ng/dL (0.78-2.19)
== END 2022-01-05 10:07 | disposition home or self-care (01) ==
LOC: LAB 09:57
PROVIDERS: ATTEND Internal Medicine
DX: E03.9 Hypothyroidism, unspecified (principal)
CPT/HCPCS: 84439; 84443

== ENCOUNTER → 2022-05-02 | Outpatient (CLI) | payer MEDICAID ==
[2022-05-02 19:57] LABS: African American GFR (CKD) 139.3 (60.0-200.0); Albumin 4.5 g/dL (3.8-4.9); Albumin/Globulin Ratio 1.71 (1.60-3.17); Anion Gap 12.4 mmol/L (10.00-18.00); BUN/Creat Ratio 15.33 Ratio (12.00-20.00); Blood Urea Nitrogen 9.9 mg/dL (9.0-27.0); Carbon Dioxide 23.6 mmol/L (20.0-27.5); Globulin 2.6 g/dL (1.6-3.3); Non-African American GFR(CKD) 120.2 (60.0-200.0); Potassium 3.8 mmol/L (3.5-5.5); T4, Free (Free Thyroxine) 1.17 ng/dL (0.800-1.800); Total Bilirubin 0.4 mg/dL (0.30-1.20); Total Protein 7.1 g/dL (6.2-8.2)
== END | disposition home or self-care (01) ==
LOC: LABWHC1 10:28
PROVIDERS: ATTEND Internal Medicine
DX: E03.9 Hypothyroidism, unspecified (principal); E55.9 Vitamin D deficiency, unspecified
CPT/HCPCS: 36415; 80053; 82306; 84439; 84443

== ENCOUNTER 2022-07-06 16:33 | Emergency (ER) | payer OTHER, BC ==
[2022-07-06 16:51] VITALS: BP 146/83; PULSE 98; RESP 16; TEMP 98.4
--- NOTE | 2022-07-06 17:07 | ED ---
General Adult HPI - General Chief complaint: Needlestick/Exposure Stated complaint: [facility] - needlestick Time Seen by Provider: 07/06/22 16:54 Source: patient Mode of arrival: ambulatory Limitations: no limitations - History of Present Illness Initial comments: Patient is a 27-year-old female presenting with chief complaint of needle stick injury. 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 Patient states that her source does not appear to be high risk, no history of HIV or hepatitis. She has low suspicion for incarceration or use of IV drugs. She denies any numbness, tingling, weakness, loss of range of motion. - Related Data Home Medications Medication Instructions Recorded Confirmed Citalopram Hydrobromide [CeleXA] 20 mg PO HS 10/15/20 01/05/22 Levothyroxine Sodium 100 mcg PO HS 10/15/20 01/05/22 Loratadine [Claritin] 10 mg PO HS 10/15/20 01/05/22 Montelukast [Singulair] 10 mg PO HS 10/15/20 01/05/22 Pnv No.95/Ferrous Fum/Folic AC 1 each PO HS 10/15/20 01/05/22 [ Multivitamin Tablet] busPIRone HCL 5 mg PO BID 10/15/20 01/05/22 Albuterol Inhaler [Ventolin Hfa 1 puff INHALATION DIRECTED PRN 11/24/20 01/05/22 Inhaler] Albuterol Inhaler [Ventolin Hfa 2 puff INHALATION RT-QID PRN 11/24/20 01/05/22 Inhaler] Budesonide [Pulmicort Flexhaler] 2 puff INHALATION DAILY 11/24/20 01/05/22 Insulin Detemir (Levemir) [Levemir] 35 units SQ QAM 11/24/20 01/05/22 Insulin NPH Hum/Reg Insulin Hm 22 units SQ DAILY 01/08/21 01/05/22 [Novolin 70-30 Flexpen] valACYclovir HCL [Valtrex] 500 mg PO BID 01/08/21 01/05/22 Previous Rx's Medication Instructions Recorded Ibuprofen [Motrin] 600 mg PO Q6H PRN #30 tab 04/27/21 Allergies Allergy/AdvReac Type Severity Reaction Status Date / Time adhesive tape Allergy Rash/Hives Verified 01/05/22 10:03 hydroxyzine [From Atarax] Allergy Rash/Hives Verified 01/05/22 10:03 Review of Systems ROS Statement: Those systems with pertinent positive or pertinent negative responses have been documented in the HPI. ROS Other: All systems not noted in ROS Statement are negative. Past Medical History Past Medical History: Asthma, Thyroid Disorder Additional Past Medical History / Comment(s): gestational diabetes History of Any Multi-Drug Resistant Organisms: None Reported Past Surgical History: Section Past Anesthesia/Blood Transfusion Reactions: No Reported Reaction Past Psychological History: Anxiety, Depression Smoking Status: Former smoker Past Alcohol Use History: None Reported Past Drug Use History: None Reported - Past Family History Father Family Medical History: Hyperlipidemia, Hypertension Mother Family Medical History: Cancer, Fibromyalgia General Exam Limitations: no limitations General appearance: alert, in no apparent distress Head exam: Present: atraumatic, normocephalic, normal inspection Eye exam: Present: normal appearance, PERRL, EOMI. Absent: scleral icterus, conjunctival injection, periorbital swelling Neck exam: Present: normal inspection Respiratory exam: Present: normal lung sounds bilaterally. Absent: respiratory distress, wheezes, rales, rhonchi, stridor Cardiovascular Exam: Present: regular rate, normal rhythm, normal heart sounds. Absent: systolic murmur, diastolic murmur, rubs, gallop, clicks Neurological exam: Present: alert, oriented X3, CN II-XII intact Psychiatric exam: Present: normal affect, normal mood Skin exam: Present: warm, dry, intact, normal color. Absent: rash Course Vital Signs 07/06/22 16:48 Temperature 98.4 F Pulse Rate 98 Respiratory 16 Rate Blood Pressure 146/83 O2 Sat by Pulse 98 Oximetry Medical Decision Making - Medical Decision Making Patient is a 27-year-old female presenting for evaluation of needle stick injury. 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 Samp les were taken from source, patient samples were drawn here today. Appropriate paperwork is filled out.Follow-up with PCP. Report back to ER with any new or worsening symptoms. Discussed return parameters and answered all questions. Patient conveyed verbal understanding and agreed to the plan. I discussed this case in detail with my attending Dr. Meadows Disposition Clinical Impression: Needle stick injury of finger Disposition: HOME SELF-CARE Condition: Good Instructions (If sedation given, give patient instructions): Needle Stick Injuries (ED) Additional Instructions: Follow-up with PCP. Report back to ER with any new or worsening symptoms. Is patient prescribed a controlled substance at d/c from ED?: No Referrals: Glen Domingo DO [Primary Care Provider] - 1-2 days Time of Disposition: 17:07
[2022-07-07 00:18] LABS: Hepatitis B Surface AB- Quant 16.2 mIU/mL; Hepatitis B Surface Antibody Reactive (Nonreactive)
[2022-07-07 01:50] LABS: Hepatitis C IgG Antibody Nonreactive (Nonreactive)
[2022-07-07 04:33] LABS: HIV 2 AB Non-Reactive (Non-Reactive); HIV AB P24 Non-Reactive (Non-Reactive); HIV P24 AG Non-Reactive (Non-Reactive)
== END 2022-07-06 17:26 | disposition home or self-care (01) ==
LOC: EC 16:33
DX: S66.391A Other injury of extensor muscle, fascia and tendon of left index finger at wrist and hand level, initial encounter (principal); J45.909 Unspecified asthma, uncomplicated; E03.9 Hypothyroidism, unspecified; F41.9 Anxiety disorder, unspecified; F32.A Depression, unspecified; Z87.891 Personal history of nicotine dependence; Z79.890 Hormone replacement therapy; Z79.51 Long term (current) use of inhaled steroids; Z79.899 Other long term (current) drug therapy; Z88.6 Allergy status to analgesic agent; W46.1XXA Contact with contaminated hypodermic needle, initial encounter
CPT/HCPCS: 36415; 86706; 86803; 87390; 99283

== ENCOUNTER → 2022-12-23 | Outpatient (CLI) | payer BC ==
[2022-12-23 20:15] LABS: Basophils # (A) 0.02 X 10*3/uL (0.00-0.10); Basophils % (A) 0.2 %; Eosinophils # (A) 0.11 X 10*3/uL (0.04-0.35); Eosinophils % (A) 1.3 %; HCT 42.8 % (37.2-46.3); HGB 13.6 g/dL (12.0-15.0); Immature Grans, Automated 0.4 %; Lymphocytes # (A) 2.26 X 10*3/uL (0.90-5.00); Lymphocytes % (A) 27.6 %; MCH 27.2 pg (27.0-32.0); MCHC 31.8 g/dL (32.0-37.0); MCV 85.6 fL (80.0-97.0); Mean Platelet Volume 9.3 fL (9.5-12.2); Monocytes # (A) 0.52 X 10*3/uL (0.20-1.00); Monocytes % (A) 6.4 %; NRBC Per 100 WBC 0 /100 WBCS (0.0-0.0); Neutrophils # (A) 5.24 X 10*3/uL (1.80-7.70); Neutrophils % (A) 64.1 %; Platelet Count 268 X 10*3/uL (140-440); WBC 8.18 X 10*3/uL (4.50-10.00)
== END | disposition home or self-care (01) ==
LOC: LABPAT 12:56
PROVIDERS: ATTEND Obstetrics & Gynecology
DX: Z01.818 Encounter for other preprocedural examination (principal)
CPT/HCPCS: 85025

== ENCOUNTER 2022-12-29 05:47 | Day surgery (SDC) | payer BC, MEDICAID ==
[2022-12-23 11:42] VITALS: BMI 39.6
[~2022-12-29 05:47] MED LIST: Pre Op ABX Message 1 EACH MISC MISCELLANE ONE
[2022-12-29] MEDS ORDERED: ONDANSETRON 4 MG/2 ML VIAL IVP ONE (06:07)
[2022-12-29] MEDS ORDERED: LACTATED RINGERS 1,000 ML IV SCH (06:07)
[2022-12-29] MEDS ORDERED: DEXAMETHASONE SOD PHOSPHATE 4 MG/ML 1 ML VIAL IV ONE (06:07)
[2022-12-29] MEDS ORDERED: HYDROmorphone 0.5 MG/0.5 ML SYRINGE IVP PRN (06:07)
[2022-12-29] MEDS ORDERED: LIDOCAINE 1% (10MG/ML) FOR IV START INTRADERMA ONE (06:35)
[2022-12-29 06:37] LABS: Glucose,Whole Blood 94 mg/dL (70-110)
[2022-12-29] MEDS ORDERED: ALBUTEROL NEBULIZED 2.5 MG/3 ML INHALATION STA (06:48)
--- NOTE | 2022-12-29 07:07 | P.HPOB ---
History of Present Illness H&P Date: 12/29/22 Chief Complaint: pelvic pain 27 year old presents for a diagnostic laparoscopy and excision of endometriosis using da Jo. She has ongoing pelvic pain worse with her periods starting to be daily. Review of Systems All systems: negative Constitutional: Denies chills, Denies fever Eyes: denies blurred vision, denies pain Ears, nose, mouth and throat: Denies headache, Denies sore throat Cardiovascular: Denies chest pain, Denies shortness of breath Respiratory: Denies cough Gastrointestinal: Denies abdominal pain, Denies diarrhea, Denies nausea, Denies vomiting Genitourinary: Denies dysuria, Denies hematuria Musculoskeletal: Denies myalgias Integumentary: Denies pruritus, Denies rash Neurological: Denies numbness, Denies weakness Psychiatric: Denies anxiety, Denies depression Endocrine: Denies fatigue, Denies weight change Past Medical History Past Medical History: Asthma, Thyroid Disorder Additional Past Medical History / Comment(s): gestational diabetes. pre- diabetic. interstitial cystitis. pcos/endometriosis History of Any Multi-Drug Resistant Organisms: None Reported Past Surgical History: Bladder Surgery, Section Additional Past Surgical History / Comment(s): laparoscopies. urethral procedures Past Anesthesia/Blood Transfusion Reactions: No Reported Reaction Additional Past Anesthesia/Blood Transfusion Reaction / Comment(s): "slow to wake up" Past Psychological History: ADD/ADHD, Anxiety, Depression, PTSD Smoking Status: Former smoker Past Alcohol Use History: None Reported Past Drug Use History: None Reported - Past Family History Father Family Medical History: Hyperlipidemia, Hypertension Mother Family Medical History: Cancer, Fibromyalgia Medications and Allergies Home Medications Medication Instructions Recorded Confirmed Type Levothyroxine Sodium 88 mcg PO DIRECTED 10/15/20 12/23/22 History Loratadine [Claritin] 10 mg PO HS 10/15/20 12/23/22 History Montelukast [Singulair] 10 mg PO HS 10/15/20 12/23/22 History busPIRone HCL 10 mg PO BID 10/15/20 12/23/22 History Albuterol Inhaler [Ventolin Hfa 1 puff INHALATION DIRECTED PRN 11/24/20 12/23/22 History Inhaler] Elagolix Sodium [Orilissa] 150 mg PO BID 12/23/22 12/23/22 History Escitalopram [Lexapro] 1.5 tab PO DAILY 12/23/22 12/23/22 History Fluticasone Propionate [Flovent 1 puff INHALATION BID 12/23/22 12/23/22 History Diskus] Methylphenidate HCl [Concerta] 18 mg PO DAILY 12/23/22 12/23/22 History Semaglutide [Ozempic] 2 mg SQ Q7D 12/23/22 12/23/22 History Allergies Allergy/AdvReac Type Severity Reaction Status Date / Time adhesive tape Allergy Rash/Hives Verified 12/23/22 11:16 hydroxyzine [From Atarax] Allergy Rash/Hives Verified 12/23/22 11:16 Exam Osteopathic Statement: *. No significant issues noted on an osteopathic structural exam other than those noted in the History and Physical/Consult. Vital Signs Temp Pulse Pulse Resp BP Pulse Ox 12/29/22 07:06 90 12/29/22 06:56 92 12/29/22 06:24 97.8 F 96 20 132/71 96 Intake and Output 12/28/22 12/29/22 12/29/22 22:59 06:59 14:59 Other: Weight 96.8 kg Heart: Regular rate and rhythm Lungs: Clear to auscultation bilaterally Abdomen: Soft, nontender Extremities: Negative Homans sign Assessment and Plan (1) Pelvic pain Current Visit: Yes Status: Acute Code(s): R10.2 - PELVIC AND PERINEAL PAIN SNOMED Code(s): 01342791 Plan: 1. Diagnostic laparoscopy and possible excision of endometriosis using da Jo
[2022-12-29] MEDS ORDERED: PROPOFOL 10 MG/ML 20 ML VIAL IV ONE (07:10)
[2022-12-29] MEDS ORDERED: INDOCYANINE GREEN 25 MG VIAL IV ONE (07:10)
[2022-12-29] MEDS ORDERED: fentaNYL (PF) 50 MCG/ML 2 ML AMP ONE (07:10)
[2022-12-29] MEDS ORDERED: diphenhydrAMINE 50 MG/ML 1 ML VIAL ONE (07:10)
[2022-12-29] MEDS ORDERED: SUGAMMADEX SODIUM 200 MG/2 ML SDV IV ONE (07:10)
[2022-12-29] MEDS ORDERED: ROCURONIUM 10 MG/ML (5 ML VIAL) IV ONE (07:10)
[2022-12-29] MEDS ORDERED: GLYCOPYRROLATE 0.2 MG/ML 2 ML VIAL ONE (07:10)
[2022-12-29] MEDS ORDERED: NEOSTIGMINE 1 MG/ML 10 ML VIAL ONE (07:10)
[2022-12-29] MEDS ORDERED: SUCCINYLCHOLINE CHLORIDE 200 MG/10 ML VIAL IV ONE (07:10)
[2022-12-29] MEDS ORDERED: MIDAZOLAM 2 MG/2 ML VIAL ONE (07:10)
[2022-12-29] MEDS ORDERED: KETAMINE 10 MG/ML 20 ML VIAL ONE (07:10)
[2022-12-29] MEDS ORDERED: BUPIVACAINE (PF) 0.25% 30 ML VIAL SQ ONE ×2 (07:44→08:17)
--- NOTE | 2022-12-29 08:26 | P.OP ---
Date of Procedure: 12/29/22 Preoperative Diagnosis: 1. pelvic pain Postoperative Diagnosis: 1. pelvic pain Procedure(s) Performed: Diagnostic laparoscopy, lysis of adhesions and excision of endometriosis using da Jo Anesthesia: LAURA Surgeon: Sammie Nunez Estimated Blood Loss (ml): 10 IV fluids (ml): 700 Urine output (ml): 80 Pathology: other (Perineum, suspect endometriosis) Condition: stable Disposition: PACU Operative Findings: Uterus sounded to 7 cm and was freely mobile. There were prominent blood vessels on both sides of the uterus and the broad ligament. There was some omental adhesions in the upper abdomen. The bladder appears to be adhered to the anterior uterine wall with some adhesions. Endometriosis seen in the left ovarian fossa and removed. Description of Procedure: Patient taken the operating room where general anesthesia was obtained without difficulty. She is prepped and draped in normal sterile fashion dorsal lithotomy position, legs placed in the Dannie stirrups. Weighted speculum placed in the vagina and the anterior lip the cervix was grasped with single-tooth tenaculum. The uterus sounded to 7 cm. the kroner manipulator was then placed. Sigala catheter was also placed. Attention was then turned to the abdomen and gloves were changed. A 5 mm supraumbilical incision was made the scalpel and a 5 mm optical trocar was placed under direct visualization. 10 cm to the right of this and 2 cm down a 5 mm incision was made and 8 mm da Jo port was placed under direct visualization. Same measurements on the opposite side of the patient's abdomen, the 5 mm incision was made and 8 mm da Jo port was placed under direct visualization. In the left upper quadrant a 10 mm incision was made and a 10 mm optical trocar was placed under direct visualization. The 5 mm optical trocar was then replaced with the 8 mm da Jo camera port. The robot was docked on patient's right side. The camera was introduced and then the monopolar curved scissor and [place] bipolar placed under direct visualization. I broke scrub and went to the physician console. Survey of the pelvis revealed some adhesions from the bladder to the anterior uterus. These were loosened using the monopolar curved scissors. The uterus is anteverted and the eye was injected to show the endometriosis. There was a bulge in the left cornu that appears to possibly be an endometrioma within the cornu of the uterus. There is some endometriosis that lit up on the left ovary sidewall in the left ovarian fossa. I Grasped with the peritoneum here and underscored it using the monopolar curved scissors. This peritoneum was then peeled off freeing removed and taken through the career services assistant port. These pieces of peritoneum were sent to pathology. I used cautery carefully in this area to ensure hemostasis. The pelvis was copiously irrigated and hemostasis was assured. All instruments were removed from the abdomen and vagina. The abdominal incisions were closed with 4-0 Vicryl in a subcuticular fashion. Patient tolerated the procedure well, sponge and instrument counts correct 2 and she was taken to recovery room in stable condition condition
[2022-12-29] MEDS ORDERED: LACTATED RINGERS 1,000 ML IV ONE (08:35)
[2022-12-29 09:07] VITALS: TEMP 96.8
[2022-12-29] MEDS: MORPHINE SULFATE 4 MG/ML SYRINGE IVP ONE ×4 (09:26→09:53)
[2022-12-29 09:48] VITALS: RESP 16
[2022-12-29] MEDS ORDERED: HYDROcodone/APAP 7.5-325MG 1 EACH TAB PO ONE (10:23)
[2022-12-29] MEDS ORDERED: HYDROcodone/APAP 7.5-325MG 1 EACH TAB ONE (10:24)
[2022-12-29 10:35] VITALS: BP 112/68; PULSE 80
== END 2022-12-29 11:15 | disposition home or self-care (01) ==
LOC: OR 05:47
PROVIDERS: ATTEND Obstetrics & Gynecology
DX: N94.6 Dysmenorrhea, unspecified (principal); N80.9 Endometriosis, unspecified; J45.909 Unspecified asthma, uncomplicated; E03.9 Hypothyroidism, unspecified; F41.9 Anxiety disorder, unspecified; E11.9 Type 2 diabetes mellitus without complications; Z98.891 History of uterine scar from previous surgery; F32.A Depression, unspecified; Z87.891 Personal history of nicotine dependence; Z82.49 Family history of ischemic heart disease and other diseases of the circulatory system; Z83.49 Family history of other endocrine, nutritional and metabolic diseases; Z79.51 Long term (current) use of inhaled steroids; Z79.899 Other long term (current) drug therapy; Z79.890 Hormone replacement therapy; Z98.890 Other specified postprocedural states
CPT/HCPCS: 94640; 81025; 88305; 58662; J2250; J0330; J2270; J1200; J1100; J2710; J2405; J3010; J2704

== ENCOUNTER 2023-12-18 06:16 | Day surgery (SDC) | payer BC, OTHER ==
[~2023-12-18 06:16] MED LIST changes: -Pre Op ABX Message 1 EACH MISC MISCELLANE ONE; +SODIUM CHLORIDE 0.9% 1,000 ML IV SCH
[2023-12-18] MEDS: SODIUM CHLORIDE 0.9% 500 ML 500 ML IV ONE (07:06)
[2023-12-18 07:39] VITALS: BP 127/68; PULSE 89; RESP 16; TEMP 99
--- NOTE | 2023-12-18 17:03 | P.EPPROC ---
- EP Procedure Note Electrophysiology Procedure Note: Diagnosis Recurrent presyncope 12 EKG shows sinus mechanism normal [place] narrow QRS normal ST segments subtle QRS fractionation in the presence of narrow QRS in leads III and aVF at the onset of the QRS Tilt table test per protocol Baseline heart rate 77 beats minute, baseline blood pressure 120/57 mmHg Patient was tilted upright in angle of 70 degrees per protocol Minimal increase in heart rate to about 96 beats a minute heart rates remained in the 90s throughout Blood pressure was normal Patient complained of multiple symptoms such as heaviness in the chest fluttering in the throat and chest pressure and cold arms No arrhythmias are noted normal blood pressure Heart rates remained in the 90s When she was laid supine heart rate and blood pressure remained normal around 90 beats a minute Impression Normal sinus rhythm with normal QT interval A very subtle QRS fractionation at the onset of the QRS in leads III and aVF in the presence of a narrow QRS Very mild increase in heart rate upon standing, possible orthostatic intolerance No neurocardiogenic phenomena
== END 2023-12-18 08:29 | disposition home or self-care (01) ==
LOC: CATHEP 06:16
PROVIDERS: ATTEND Internal Medicine Clinical Cardiac Electrophysiology
DX: R55 Syncope and collapse (principal); J45.909 Unspecified asthma, uncomplicated; E03.9 Hypothyroidism, unspecified; K58.9 Irritable bowel syndrome, unspecified; F90.9 Attention-deficit hyperactivity disorder, unspecified type; F43.10 Post-traumatic stress disorder, unspecified; Z88.1 Allergy status to other antibiotic agents; Z79.899 Other long term (current) drug therapy
CPT/HCPCS: 93660

== ENCOUNTER 2024-06-26 14:31 | Emergency (ER) | payer OTHER ==
[2024-06-26] MEDS: FAMOTIDINE 20 MG/2 ML VIAL IV STA (15:44)
[2024-06-26] MEDS: diphenhydrAMINE 50 MG/ML 1 ML VIAL IVP STA (15:46)
--- NOTE | 2024-06-26 15:51 | ED ---
Allergic Reaction HPI - General Chief complaint: Allergic Reaction Stated complaint: Bee sting Time Seen by Provider: 06/26/24 14:42 Source: patient, RN notes reviewed Mode of arrival: ambulatory Limitations: no limitations - History of Present Illness Initial Comments: This is a 29-year-old female who presents to the emergency department for a bee sting. Patient was stung by bee on the left side of her neck shortly before arrival. She has since developed increased swelling to this area and feels like it is hard to swallow. States that it is also very itchy. She was stung by a bee a week ago and also experienced a severe reaction that she states she is still recovering from. She was not evaluated at that time and was not put on any steroids. States that she took 50 mg of Benadryl prior to arrival. Does not use an EpiPen. Denies any chest pain or shortness of breath. MD Complaint: allergic reaction - Related Data Home Medications Medication Instructions Recorded Confirmed Montelukast [Singulair] 10 mg PO HS 10/15/20 12/12/23 Albuterol Inhaler [Ventolin Hfa 1 puff INHALATION DIRECTED PRN 11/24/20 12/12/23 Inhaler] Escitalopram [Lexapro] 10 tab PO DAILY 12/23/22 12/12/23 Advair(Unk) 1 puff INHALATION DAILY PRN 12/12/23 12/12/23 Thyroid,Pork [[place] Thyroid] 60 mg PO DAILY 12/12/23 12/12/23 Previous Rx's Medication Instructions Recorded EPINEPHrine [Auvi-Q] 0.3 mg IM ONCE PRN #2 each 06/26/24 Famotidine 40 mg PO DAILY 5 Days #5 tablet 06/26/24 predniSONE 50 mg PO DAILY 5 Days #5 tab 06/26/24 Allergies Allergy/AdvReac Type Severity Reaction Status Date / Time adhesive tape Allergy Rash/Hives Verified 12/18/23 07:13 bee venom protein (honey bee) Allergy Anaphylaxis Verified 06/26/24 14:39 hydroxyzine [From Atarax] Allergy Rash/Hives Verified 12/18/23 07:13 Review of Systems ROS Statement: Those systems with pertinent positive or pertinent negative responses have been documented in the HPI. ROS Other: All systems not noted in ROS Statement are negative. Past Medical History Past Medical History: Asthma, Thyroid Disorder Additional Past Medical History / Comment(s): gestational diabetes being worked up for pots, had sleep study completed not had reults as yet. pre-diabetic. interstitial cystitis. pcos/endometriosis. POTS History of Any Multi-Drug Resistant Organisms: None Reported Past Surgical History: Bladder Surgery, Section, Hysterectomy Additional Past Surgical History / Comment(s): laparoscopies. urethral procedures. bladder dilation x3 Past Anesthesia/Blood Transfusion Reactions: No Reported Reaction Additional Past Anesthesia/Blood Transfusion Reaction / Comment(s): "slow to wake up" Past Psychological History: ADD/ADHD, Anxiety, Depression, PTSD Smoking Status: Former smoker - Past Family History Father Family Medical History: Hyperlipidemia, Hypertension Mother Family Medical History: Cancer, Fibromyalgia General Exam Limitations: no limitations General appearance: alert, in no apparent distress Head exam: Present: atraumatic, normocephalic, normal inspection Neck exam: Present: other (Insect sting to the left side of the neck with surrounding urticaria) Respiratory exam: Present: normal lung sounds bilaterally. Absent: respiratory distress, wheezes, rales, rhonchi, stridor Cardiovascular Exam: Present: regular rate, normal rhythm, normal heart sounds. Absent: systolic murmur, diastolic murmur, rubs, gallop, clicks Neurological exam: Present: alert, oriented X3, CN II-XII intact Psychiatric exam: Present: normal affect, normal mood Course Vital Signs 06/26/24 06/26/24 06/26/24 14:35 15:40 16:05 Temperature 98.1 F 98.7 F Pulse Rate 102 H 92 Respiratory 20 18 19 Rate Blood Pressure 155/106 135/98 O2 Sat by Pulse 97 100 Oximetry 06/26/24 17:41 Temperature 98.7 F Pulse Rate 84 Respiratory 18 Rate Blood Pressure 132/80 O2 Sat by Pulse 97 Oximetry Medical Decision Making - Medical Decision Making This is a 29 year old female who presents to the emergency department for a bee sting to the left side of the neck. Was pt. sent in by a medical professional or institution? @ -No Did you speak to anyone other than the patient for history? @ -No Did you review nursing and triage notes? @ -Yes, and I agree, it is accurate with regards to the patient's symptoms. Were old charts reviewed? @ -No Differential Diagnosis? @ -Insect sting, cellulitis, dermatitis, burn, this is not meant to be an all- inclusive list. EKG interpreted by me (3pts min.)? @ -Not obtained X-rays interpreted by me (1pt min.)? @ -Not obtained CT interpreted by me (1pt min.)? @ -Not obtained U/S interpreted by me (1pt. min.)? @ -Not obtained What testing was considered but not performed? (CT, X-rays, U/S, labs)? Why? @ -None What meds were considered but not given? Why? @ -None Did you discuss the management of the patient with other professionals? @ -No Did you reconcile home meds? @ -No Was smoking cessation discussed for >3mins.? @ -No Was critical care preformed (if so, how long)? @ -No Were there social determinants of health that impacted care today? How? (Homelessness, low income, unemployed, alcoholism, drug addiction, transportation, low edu. Level, literacy, decrease access to med. care, [facility], rehab)? @ -No Was there de-escalation of care discussed even if they declined? (Discuss DNR or withdrawal of care, Hospice)? @ -No What co-morbidities impacted this encounter? (DM, HTN, Smoking, COPD, CAD, Cancer, CVA, Hep., AIDS, mental health diagnosis, sleep apnea, morbid obesity)? @ -Bee allergy Was patient admitted / discharged? @ -Discharged. Patient treated with IV fluids, Solu-Medrol, Benadryl, and famotidine. She had significant improvement in symptoms afterwards. She had no chest pain or shortness of breath. She had some mild stinging from the localized reaction on the neck. Triamcinolone cream was provided to use as a spot treatment which she found beneficial. Prescription for an additional 5-day course of prednisone and famotidine provided. Advised continuing to take Benadryl as well. Patient discharged home in stable condition. Case discussed with ED attending Dr. Stroud. Return precautions reviewed in depth, the patient is instructed to return to the emergency department with any new, worsening, or concerning symptoms. Patient verbalized understanding. Undiagnosed new problem with uncertain prognosis? @ -None Drug Therapy requiring intensive monitoring for toxicity (Heparin, Nitro, Insulin, Cardizem)? @ -None Were any procedures done? @ -None Diagnosis/symptom? @ -Allergic reaction to bee sting Acute, or Chronic, or Acute on Chronic? @ -Acute Uncomplicated (without systemic symptoms) or Complicated (systemic symptoms)? @ -Uncomplicated Side effects of treatment? @ -None Exacerbation, Progression, or Severe Exacerbation] @ -Not applicable Poses a threat to life or bodily function? @ -No Disposition Clinical Impression: Allergic reaction to insect sting Disposition: HOME SELF-CARE Instructions (If sedation given, give patient instructions): Insect Bite or Sting (ED) Additional Instructions: Return to the emergency department with any new, worsening, or concerning symptoms. Take the prednisone and famotidine daily for 5 days. Continue to take Benadryl every 4-6 hours. Apply the triamcinolone cream up to 4 times daily to further help with your symptoms. Follow up with your primary care provider in 1- 2 days. Prescriptions: EPINEPHrine [Auvi-Q] 0.3 mg IM ONCE PRN #2 each PRN Reason: Anaphylaxis Famotidine 40 mg PO DAILY 5 Days #5 tablet predniSONE 50 mg PO DAILY 5 Days #5 tab Is patient prescribed a controlled substance at d/c from ED?: No Referrals: Glen Domingo DO [Primary Care Provider] - 1-2 days Time of Disposition: 17:00
[2024-06-26] MEDS: SODIUM CHLORIDE 0.9% 1,000 ML IV STA (15:53)
[2024-06-26] MEDS: methylPREDNISolone SOD SUCCI 125 MG/2 ML VIAL IV STA (15:54)
[2024-06-26 16:20] VITALS: TEMP 98.7
[2024-06-26] MEDS: TRIAMCINOLONE 0.1% CREAM 80 GM TUBE TOPICAL STA (16:59)
[2024-06-26 17:41] VITALS: BP 132/80; PULSE 84; RESP 18
== END 2024-06-26 17:41 | disposition home or self-care (01) ==
LOC: EC 14:31
CPT/HCPCS: 96361; 96374; 96375; 99283

== ENCOUNTER 2024-08-29 00:28 | Emergency (ER) | payer OTHER ==
[2024-08-29 00:37] VITALS: RESP 18
--- NOTE | 2024-08-29 00:51 | ED ---
ENT HPI - General Chief complaint: ENT Stated complaint: Nose Bleed Time Seen by Provider: 08/29/24 00:50 Source: patient, RN notes reviewed Mode of arrival: ambulatory - History of Present Illness Initial comments: 29-year-old female presented to the ER for evaluation of epistaxis. Patient does report a history of nosebleeds. She states she is followed up with an ENT many years ago and was told she had a polyp. She is unsure of what side that was on. She states for the past 2 hours she has been having a persistent nosebleed out of her right nostril after rubbing her nose. She denies any injuries or traumas to nose. No blood thinners. Patient does report clots from her right nostril. She denies any difficulty breathing, swallowing, fevers or chills. No other complaints. - Related Data Home Medications Medication Instructions Recorded Confirmed Montelukast [Singulair] 10 mg PO HS 10/15/20 12/12/23 Albuterol Inhaler [Ventolin Hfa 1 puff INHALATION DIRECTED PRN 11/24/20 12/12/23 Inhaler] Escitalopram [Lexapro] 10 tab PO DAILY 12/23/22 12/12/23 Advair(Unk) 1 puff INHALATION DAILY PRN 12/12/23 12/12/23 Thyroid,Pork [[place] Thyroid] 60 mg PO DAILY 12/12/23 12/12/23 Previous Rx's Medication Instructions Recorded EPINEPHrine [Auvi-Q] 0.3 mg IM ONCE PRN #2 each 06/26/24 Famotidine 40 mg PO DAILY 5 Days #5 tablet 06/26/24 predniSONE 50 mg PO DAILY 5 Days #5 tab 06/26/24 Allergies Allergy/AdvReac Type Severity Reaction Status Date / Time adhesive tape Allergy Rash/Hives Verified 12/18/23 07:13 bee venom protein (honey bee) Allergy Anaphylaxis Verified 06/26/24 14:39 hydroxyzine [From Atarax] Allergy Rash/Hives Verified 12/18/23 07:13 Review of Systems ROS Statement: Those systems with pertinent positive or pertinent negative responses have been documented in the HPI. ROS Other: All systems not noted in ROS Statement are negative. Past Medical History Past Medical History: Asthma, Thyroid Disorder Additional Past Medical History / Comment(s): gestational diabetes being worked up for pots, had sleep study completed not had results as yet. pre-diabetic. interstitial cystitis. pcos/endometriosis. POTS. 08/29/2024 - POTS confirmed and diagnosed with fibromyalgia History of Any Multi-Drug Resistant Organisms: None Reported Past Surgical History: Bladder Surgery, Section, Hysterectomy Additional Past Surgical History / Comment(s): laparoscopies. urethral procedures. bladder dilation x3 Past Anesthesia/Blood Transfusion Reactions: No Reported Reaction Additional Past Anesthesia/Blood Transfusion Reaction / Comment(s): "slow to wake up" Past Psychological History: ADD/ADHD, Anxiety, Depression, PTSD Smoking Status: Former smoker - Past Family History Father Family Medical History: Hyperlipidemia, Hypertension Mother Family Medical History: Cancer, Fibromyalgia General Exam Limitations: no limitations General appearance: alert, in no apparent distress ENT exam: Present: normal exam, normal oropharynx, mucous membranes moist, other (No septal enlargement. Minimal ooze from right nostril. No nasal bone tenderness) Respiratory exam: Present: normal lung sounds bilaterally. Absent: respiratory distress, wheezes, rales, rhonchi, stridor Cardiovascular Exam: Present: regular rate, normal rhythm, normal heart sounds. Absent: systolic murmur, diastolic murmur, rubs, gallop, clicks Neurological exam: Present: alert, oriented X3, CN II-XII intact Skin exam: Present: warm, dry, intact, normal color. Absent: rash Course Vital Signs 08/29/24 08/29/24 00:31 01:47 Temperature 98.1 F 97.8 F Pulse Rate 105 H 99 Respiratory 18 18 Rate Blood Pressure 141/92 134/78 O2 Sat by Pulse 97 99 Oximetry Medical Decision Making - Medical Decision Making Was pt. sent in by a medical professional or institution (, PA, UNIVERSITY TEACHER, urgent care, hospital, or intermediate...) When possible be specific @ -No Did you speak to anyone other than the patient for history (EMS, parent, family, police, friend...)? What history was obtained from this source @ -No Did you review nursing and triage notes (agree or disagree)? Why? @ -I reviewed and agree with nursing and triage notes Were old charts reviewed (outside hosp., previous admission, EMS record, old EKG, old radiological studies, urgent care reports/EKG's, intermediate records)? Report findings @ -No old charts were reviewed Differential Diagnosis (chest pain, altered mental status, abdominal pain women, abdominal pain men, vaginal bleeding, weakness, fever, dyspnea, syncope, headache, dizziness, GI bleed, back pain, seizure, CVA, palpatations, mental health, musculoskeletal)? @ -Nasal foreign body, epistaxis, nasal bone fracture... This list is not meant to be all-inclusive EKG interpreted by me (3pts min.). @ -None done X-rays interpreted by me (1pt min.). @ -None done CT interpreted by me (1pt min.). @ -None done U/S interpreted by me (1pt. min.). @ -None done What testing was considered but not performed or refused? (CT, X-rays, U/S, labs)? Why? @ -None What meds were considered but not given or refused? Why? @ -None Did you discuss the management of the patient with other professionals (professionals i.e. , PA, UNIVERSITY TEACHER, lab, RT, psych nurse, social media intern, child support agent, teacher, sales and service officer, case specialist)? Give summary @ -No Was smoking cessation discussed for >3mins.? @ -No Was critical care preformed (if so, how long)? @ -No Were there social determinants of health that impacted care today? How? (Homelessness, low income, unemployed, alcoholism, drug addiction, transportation, low edu. Level, literacy, decrease access to med. care, halfway, rehab)? @ -No Was there de-escalation of care discussed even if they declined (Discuss DNR or withdrawal of care, Hospice)? DNR status @ -No What co-morbidities impacted this encounter? (DM, HTN, Smoking, COPD, CAD, Cancer, CVA, ARF, Chemo, Hep., AIDS, mental health diagnosis, sleep apnea, morbid obesity)? @ -None Was patient admitted / discharged? Hospital course, mention meds given and route, prescriptions, significant lab abnormalities, going to OR and other pertinent info. @ -Discharge. 29-year-old female presented the ER for epistaxis. No blood thinner use. Exam remarkable for minimal ooze from right nostril. No evidence of septal hematoma. No nasal bone fracture. Patient in no signs of acute distress. Afrin administered and nose clamp placed. Upon reevaluation, bleeding ceased. Patient monitored in the ER for approximately 30 minutes post bleeding without recurrence. Patient is stable for discharge. I advised her to follow-up with ENT, referral given. Strict return parameters discussed. Patient discharged in stable condition with follow-up to PCP and ENT. Patient verbally expressed understanding and agreement with care plan. Case discussed with ED attending, Dr. Muniz. Undiagnosed new problem with uncertain prognosis? @ -No Drug Therapy requiring intensive monitoring for toxicity (Heparin, Nitro, Insulin, Cardizem)? @ -No Were any procedures done? @ -No Diagnosis/symptom? @ -Epistaxis Acute, or Chronic, or Acute on Chronic? @ -Acute Uncomplicated (without systemic symptoms) or Complicated (systemic symptoms)? @ -Uncomplicated Side effects of treatment? @ -No Exacerbation, Progression, or Severe Exacerbation? @ -No Poses a threat to life or bodily function? How? (Chest pain, [place], [place], pneumonia, PE, COPD, DKA, ARF, appy, cholecystitis, CVA, Diverticulitis, Homicidal, Suicidal, threat to staff... and all critical care pts) @ -No Disposition Clinical Impression: Epistaxis Disposition: HOME SELF-CARE Condition: Stable Instructions (If sedation given, give patient instructions): Nosebleed (ED) Additional Instructions: Follow-up with ENT. Return to the ER for any new or worsening concerns. Is patient prescribed a controlled substance at d/c from ED?: No Referrals: Glen Domingo DO [Primary Care Provider] - 1-2 days Alfredo Michelle MD [STAFF PHYSICIAN] - 1-2 days Time of Disposition: 01:41
[2024-08-29] MEDS: OXYMETAZOLINE 0.05% NASL SPRAY 1 SPRAY BOTTLE NASAL STA (01:00)
[2024-08-29 01:48] VITALS: BP 134/78; PULSE 99; TEMP 97.8
== END 2024-08-29 01:56 | disposition home or self-care (01) ==
LOC: EC 00:28
DX: R04.0 Epistaxis (principal); Z91.09 Other allergy status, other than to drugs and biological substances; Z91.030 Bee allergy status; Z88.8 Allergy status to other drugs, medicaments and biological substances; Z87.891 Personal history of nicotine dependence
CPT/HCPCS: 99283

== ENCOUNTER → 2024-09-30 | Outpatient (CLI) | payer OTHER ==
--- NOTE | 2024-09-30 11:31 | US ---
EXAMINATION TYPE: US liver DATE OF EXAM: 09/30/2024 COMPARISON: NONE CLINICAL INDICATION: Female, 29 years old with history of R74.8 ABN LIVER SERUM ENZYMES; LFTs TECHNIQUE: Grayscale and color Doppler imaging of the right upper quadrant was performed. FINDINGS: EXAM MEASUREMENTS: Liver Length: 22.7 cm Gallbladder Wall: 0.2 cm CBD: 0.4 cm Right Kidney: 12.9x4.4x6.8 cm DISPATCH MANAGER NOTES: Pancreas: Tail obscured by overlying bowel gas Liver: severe hepatocellular disease, heterogenous echotexture, hepatomegaly, hypoechoic area measur ed at inferior lateral right lobe: 1.3x0.9x1.2cm. Gallbladder: wnl Evidence for sonographic Molina's sign: No CBD: wnl Right Kidney: wnl Exam limited by bowel gas and body habitus IMPRESSION: 1. Hepatomegaly with moderate fatty infiltration of the liver. There may be a cyst within the right l obe liver. [facility], , 09/30/2024 11:29 AM
== END | disposition home or self-care (01) ==
LOC: RADUSWWP 09:33
PROVIDERS: ATTEND Family Medicine
DX: R74.8 Abnormal levels of other serum enzymes (principal); K76.0 Fatty (change of) liver, not elsewhere classified
CPT/HCPCS: 76705

== ENCOUNTER → 2024-10-21 | Outpatient (CLI) | payer OTHER ==
[2024-10-22 02:50] LABS: Basophils # (A) 0.03 X 10*3/uL (0.00-0.10); Basophils % (A) 0.4 %; Eosinophils # (A) 0.16 X 10*3/uL (0.04-0.35); Eosinophils % (A) 2.2 %; HCT 46.2 % (37.2-46.3); Lymphocytes # (A) 2.23 X 10*3/uL (0.90-5.00); Lymphocytes % (A) 30.5 %; MCH 28.1 pg (27.0-32.0); MCHC 32.5 g/dL (32.0-37.0); MCV 86.7 FL (80.0-97.0); Mean Platelet Volume 9.7 FL (9.5-12.2); Monocytes # (A) 0.47 X 10*3/uL (0.20-1.00); Monocytes % (A) 6.4 %; NRBC Per 100 WBC 0 X 10*3/uL (0.00-0.01); Neutrophils # (A) 4.41 X 10*3/uL (1.80-7.70); Neutrophils % (A) 60.4 %; Platelet Count 322 X 10*3/uL (140-440); RBC 5.33 X 10*6/uL (4.10-5.20); RDW 12.8 % (11.5-14.5); WBC 7.31 X 10*3/uL (4.50-10.00)
[2024-10-22 02:59] LABS: Protein, Total 7.5 g/dL (6.2-8.2)
[2024-10-22 03:03] LABS: % Iron Saturation 10.74 (12.00-45.00); ALT 68 U/L (8-44); AST 35 U/L (13-35); Albumin 4.5 g/dL (3.8-4.9); Albumin/Globulin Ratio 1.55 Ratio (1.60-3.17); Alkaline Phosphatase 84 U/L (41-126); Blood Urea Nitrogen 8.4 mg/dL (9.0-27.0); Calcium 9.9 mg/dL (8.7-10.3); Carbon Dioxide 22.7 mmol/L (21.6-31.8); Chloride 104 mmol/L (96-109); Globulin 2.9 g/dL (1.6-3.3); Glucose 93 mg/dL (70-110); Hepatitis B Surface Antigen Nonreactive (Nonreactive); Iron 42 UG/DL (50-170); Potassium 4.2 mmol/L (3.5-5.5); Sodium 141 mmol/L (135-145); Total Bilirubin 0.4 mg/dL (0.3-1.2); Total Iron Binding Capacity 391 UG/DL (228-460); Total Protein 7.4 g/dL (6.2-8.2)
[2024-10-22 03:16] LABS: Ceruloplasmin 31.7 mg/dL (20.0-60.0)
[2024-10-22 11:46] LABS: Smooth Muscle Antibody 13 UNITS (<20)
== END | disposition home or self-care (01) ==
LOC: LABWHC1 15:34
PROVIDERS: ATTEND Internal Medicine Gastroenterology
DX: R74.8 Abnormal levels of other serum enzymes (principal)
CPT/HCPCS: 36415; 80053; 81596; 82103; 82390; 82728; 83516; 83540; 83550; 84165; 85025; 86038; 87340; 87522